=== PATIENT | female | born 1965 | race Caucasian/White ===

== ENCOUNTER → 2016-11-26 | Outpatient (CLI) | payer OTHER ==
--- NOTE | 2016-11-26 07:48 | MR ---
EXAMINATION TYPE: MR shoulder LT wo con DATE OF EXAM: 11/26/2016 7:33 AM COMPARISON: Chest x-ray June 09, 2016. HISTORY: Bilateral shoulder rotator cuff tear per order. Chronic shoulder pain for 3 to 4 years with difficulty raising overhead, no relief from pain or steroid injections. TECHNIQUE: Multiplanar, multisequence imaging of the left shoulder is performed without contrast. FINDINGS: Rotator Cuff: There is focal tear at articular surface measuring 2 mm in transverse dimension by 4 mm anterior posterior dimension (paracoronal image 13 and parasagittal image 5) appears to be involving the posterior fibers of the distal supraspinatus tendon. Infraspinatus tendon is intact. No full-thi ckness retracted tendon tear is identified. Rotator cuff muscle bulk is preserved. Subscapularis tend on is intact. Acromioclavicular Joint: There is joint space loss at acromioclavicular joint. Small spur from inferi or margin of the distal acromion (paracoronal image 16) and clavicle is present. Some loss inferior f at plane is present. Glenohumeral Joint: No significant joint effusion is seen. No significant spurring is noted. Labrum: The labrum appears grossly intact given limitation of non-arthrogram study. Biceps Tendon: The long head of biceps is in normal location within bicipital groove. Intra-articular portion is not well seen particularly near labral anchor. Bone marrow signal: There is subchondral cystic change in the anterior aspect of the humeral head. Other: No additional significant abnormality is appreciated. IMPRESSION: 1. Partial articular surface tear posterior fibers of supraspinatus tendon. No full-thickness rotator cuff tear is evident. 2. Type III acromion with possible underlying impingement, clinical correlation advised
--- NOTE | 2016-11-26 08:17 | MR ---
EXAMINATION TYPE: MR shoulder RT wo con DATE OF EXAM: 11/26/2016 7:46 AM COMPARISON: NONE HISTORY: Right shoulder pain TECHNIQUE: Multiplanar, multisequence imaging of the right shoulder is performed without contrast on a 3 [place] magnet. FINDINGS: There is no evidence of an os acromiale. There are moderate hypertrophic inflammatory changes in the right AC joint. There is pseudocystic ming nge in the humeral head, indirect sign of impingement. There is an incomplete full-thickness tear of the anterior fibers of the supraspinatus tendon measuri ng 3.7 mm in width and 4.7 mm in length.. There is an intrasubstance tear or posteriorly measuring 12 .7 mm in length and only 1.5 mm in width. The subscapularis tendon appears normal. The cartilaginous glenoid labrum appears intact. The biceps tendon is normally situated within the biceps tendon groove but I cannot follow its intra- articular course beyond the biceps yung. IMPRESSION: 1. INCOMPLETE FULL-THICKNESS TEAR WELL AN INTRASUBSTANCE TEAR OF THE SUPRASPINATUS TENDON. 2. HYPERTROPHIC CHANGES, RIGHT AC JOINT. 3. PSEUDOCYSTIC CHANGE IN THE HUMERAL HEAD, AN INDIRECT SIGN OF IMPINGEMENT. 4. I AM UNABLE TO FOLLOW THE BICEPS TENDON THROUGH ITS INTRA-ARTICULAR COURSE. PLEASE CORRELATE CLINI [facility] C TO ASSESS FOR BICEPS TENDON RUPTURE. THERE DOES NOT APPEAR TO BE ANY RETRACTION.
== END | disposition home or self-care (01) ==
LOC: RADMRIMAIN 06:43
PROVIDERS: ATTEND Orthopaedic Surgery
DX: M75.112 Incomplete rotator cuff tear or rupture of left shoulder, not specified as traumatic (principal); M75.111 Incomplete rotator cuff tear or rupture of right shoulder, not specified as traumatic

== ENCOUNTER 2016-11-30 15:48 | Emergency (ER) | payer OTHER ==
--- NOTE | 2016-11-30 16:15 | ED ---
Chest Pain HPI - General Chief Complaint: Chest Pain Stated Complaint: Chest Pain Time Seen by Provider: 11/30/16 16:05 Source: patient, RN notes reviewed Mode of arrival: ambulatory Limitations: no limitations - History of Present Illness Initial Comments: this is a 51-year-old female with a history of a pneumothorax about 3 years ago on the left side who states she had the onset around 2 PM today of sharp stabbing left-sided chest pain with some shortness of breath. She has no fevers chills nausea vomiting sweats she states it hurts to breathe somewhat. She wasn't sure whether she turned and caused the pain herself or whether she may have recurrence. No cough or phlegm production no other symptoms reported at this time MD Complaint: chest pain - Related Data Home Medications Medication Instructions Recorded Confirmed Omeprazole [PriLOSEC] 20 mg PO BID 12/30/15 11/30/16 oxyCODONE-APAP 10-325MG [Percocet 1 tab PO Q6HR PRN 12/30/15 11/30/16 10-325 mg] Cyclobenzaprine [Flexeril] 10 mg PO TID PRN 11/29/16 11/30/16 Previous Rx's Medication Instructions Recorded Hydrocodone/Acetaminophen [[place] 1 each PO Q6HR PRN #20 tab 11/30/16 5-325] Ibuprofen [Motrin] 800 mg PO Q6HR PRN #20 tab 11/30/16 Allergies Allergy/AdvReac Type Severity Reaction Status Date / Time Androgenic Anabolic Steroid AdvReac Dyspnea,rash,chest Verified 11/30/16 16:34 tightness Review of Systems ROS Statement: Those systems with pertinent positive or pertinent negative responses have been documented in the HPI. ROS Other: All systems not noted in ROS Statement are negative. EKG Findings - EKG Results: EKG: interpreted by ERMD, sinus rhythm (Sinus rhythm with a rate is 76 MN interval 138 QRS duration 94 QT/QTC of 356/400 incomplete right bundle-branch block poor R-wave progression no acute ST-T wave elevations or depressions.) Past Medical History Past Medical History: COPD, Eye Disorder, GERD/Reflux Additional Past Medical History / Comment(s): HERPES,collapsed lung,emphysema, IBS,hx pos h-pylori,glaucoma cj eyes,lt cataract History of Any Multi-Drug Resistant Organisms: None Reported Past Surgical History: Cholecystectomy, Hysterectomy Additional Past Surgical History / Comment(s): NECK FUSION C5-C6 , glaucoma proc cj eyes Additional Past Anesthesia/Blood Transfusion Reaction / Comment(s): b/p dropped low with prior pain injections to back,has had very bad gas pain with prior colonoscopy. Past Psychological History: Anxiety, Depression Smoking Status: Current every day smoker Past Alcohol Use History: None Reported Additional Past Alcohol Use History / Comment(s): started smoking at age 9,1ppd Past Drug Use History: None Reported - Past Family History Mother Family Medical History: Cancer Additional Family Medical History / Comment(s): lung Father History Unknown: Yes Family Medical History: Congestive Heart Failure (CHF) Sister(s) Additional Family Medical History / Comment(s): stomach problems Brother(s) Additional Family Medical History / Comment(s): lung problems General Exam - General Exam Comments Initial Comments: This is a well-developed well-nourished awake alert oriented 3 female Limitations: no limitations General appearance: alert, anxious, in distress Head exam: Present: atraumatic, normocephalic, normal inspection Eye exam: Present: normal appearance, PERRL, EOMI. Absent: scleral icterus, conjunctival injection, periorbital swelling ENT exam: Present: normal exam, mucous membranes moist Neck exam: Present: normal inspection. Absent: tenderness, meningismus, lymphadenopathy Respiratory exam: Present: decreased breath sounds (Decreased breath sounds the left compared to the right). Absent: respiratory distress, wheezes, rales, rhonchi, stridor Cardiovascular Exam: Present: regular rate, normal rhythm, normal heart sounds. Absent: systolic murmur, diastolic murmur, rubs, gallop, clicks GI/Abdominal exam: Present: soft, normal bowel sounds. Absent: distended, tenderness, guarding, rebound, rigid Extremities exam: Present: normal inspection, full ROM, normal capillary refill. Absent: tenderness, pedal edema, joint swelling, calf tenderness Back exam: Present: normal inspection Neurological exam: Present: alert, oriented X3, CN II-XII intact Psychiatric exam: Present: normal affect, normal mood Skin exam: Present: warm, dry, intact, normal color. Absent: rash Course Vital Signs 11/30/16 11/30/16 15:56 16:53 Temperature 98.2 F Pulse Rate 94 76 Respiratory 18 16 Rate Blood Pressure 120/73 132/84 O2 Sat by Pulse 99 98 Oximetry - Reevaluation(s) Reevaluation #1: 11/30/16 17:13 Patient is feeling somewhat better after the medication. Chest Pain MDM - MDM X-ray does show evidence of perhaps a 10% pneumothorax on the left. Also is a blood noted. I did discuss this with the radiologist. The patient would like to go home. I did discuss the findings of her and her . Patient will come back if is any problems. At this time with attempts a pneumothorax there is no physical intervention other than caution with respect to smoking we did discuss smoking cessation and the floor for about 3.2 minutes. She will follow- up with her doctor and return when necessary the patient was offered admission but would prefer not to be admitted. She will come back if is any problems. Disposition Clinical Impression: Pneumothorax, left, Chest pain Disposition: HOME SELF-CARE Condition: Good Instructions: Chest Pain (ED), Spontaneous Pneumothorax (ED) Prescriptions: Hydrocodone/Acetaminophen [[place] 5-325] 1 each PO Q6HR PRN #20 tab PRN Reason: Pain Ibuprofen [Motrin] 800 mg PO Q6HR PRN #20 tab PRN Reason: Pain
[2016-11-30] MEDS ORDERED: KETOROLAC 30 MG/ML 1 ML VIAL IVP STA (16:25)
[2016-11-30 16:29] LABS: Basophils # (A) 0.1 k/uL (0-0.2); Basophils % (A) 1 %; CH 35.1; CHCM 34.5; Eosinophils # (A) 0.1 k/uL (0-0.7); Eosinophils % (A) 1 %; HCT 47.3 % (34.0-46.0); HDW 2.32; HGB 15.9 gm/dL (11.4-16.0); Luc # (Auto) 0.23; Luc % (Auto) 2; Lymphocytes # (A) 2.9 k/uL (1.0-4.8); Lymphocytes % (A) 25 %; MCH 34.4 pg (25.0-35.0); MCHC 33.6 g/dL (31.0-37.0); MCV 102.2 fL (80.0-100.0); Macrocytosis Slight; Monocytes # (A) 0.6 k/uL (0-1.0); Monocytes % (A) 5 %; Neutrophils # (A) 7.8 k/uL (1.3-7.7); Neutrophils % (A) 67 %; RBC 4.63 m/uL (3.80-5.40); RDW 12.9 % (11.5-15.5); WBC 11.7 k/uL (3.8-10.6); WBC (Perox) 11.24
--- NOTE | 2016-11-30 16:37 | XR ---
EXAMINATION TYPE: XR chest 1V portable DATE OF EXAM: 11/30/2016 4:30 PM Comparison: 10/29/2015 Clinical History: 51-year-old female with chest pain Findings: Heart is normal size. Aorta and pulmonary vasculature within normal limits. Strandy atelectasis or sc arring at the lower lungs with mild interstitial prominence and bullous emphysema in the right greate r than left upper lungs. There appears to be a pleural edge at the left apex. Underlying pneumothorax estimated at 10% by volume. Impression: COPD with bullous emphysema. Suspect a left apical pneumothorax, 10% by volume. Findings called to Dr Vandana Zheng in the ER at approximately 4:34 PM.
[2016-11-30 16:40] LABS: ALT 23 U/L (9-52); AST 20 U/L (14-36); Alkaline Phosphatase 97 U/L (38-126); Anion Gap 9 mmol/L; Blood Urea Nitrogen 11 mg/dL (7-17); Calcium 9.8 mg/dL (8.4-10.2); Carbon Dioxide 30 mmol/L (22-30); Chloride 101 mmol/L (98-107); Glucose 78 mg/dL (74-99); Magnesium 2.2 mg/dL (1.6-2.3); Non-African American GFR(MDRD) >60 (>60 ml/min/1.73 sqM); Sodium 140 mmol/L (137-145); Total Bilirubin 0.9 mg/dL (0.2-1.3); Total Protein 7.3 g/dL (6.3-8.2)
[2016-11-30 16:49] LABS: Prothrombin Time 10.3 sec (9.0-12.0)
[2016-11-30 16:50] LABS: Creatine Kinase <20 U/L (30-135)
[2016-11-30 16:51] LABS: Partial Thromboplastin Time 19.2 sec (22.0-30.0)
[2016-11-30 17:03] LABS: Creatine Kinase MB 0.2 ng/mL (0.0-2.4); Troponin I <0.012 ng/mL (0.000-0.034)
[2016-11-30 17:30] VITALS: BP 116/80; PULSE 80; RESP 18; TEMP 98.4
== END 2016-11-30 17:30 | disposition home or self-care (01) ==
LOC: EC 15:48
DX: J93.83 Other pneumothorax (principal); J44.9 Chronic obstructive pulmonary disease, unspecified; K21.9 Gastro-esophageal reflux disease without esophagitis; K58.9 Irritable bowel syndrome, unspecified; F17.200 Nicotine dependence, unspecified, uncomplicated; Z79.899 Other long term (current) drug therapy; Z88.8 Allergy status to other drugs, medicaments and biological substances; Z82.49 Family history of ischemic heart disease and other diseases of the circulatory system
CPT/HCPCS: 36415; 93005; 85379; 83880; 80053; 82550; 82553; 83735; 84484; 85025; 85610; 85730; 71010; 99285; 96374; J1885

== ENCOUNTER → 2016-12-03 | Outpatient (CLI) | payer OTHER ==
--- NOTE | 2016-12-03 12:15 | CT ---
EXAMINATION TYPE: CT angio chest DATE OF EXAM: 12/03/2016 11:58 AM COMPARISON: 07/21/2012 and radiographs 11/30/2016. HISTORY: 51 year-old female with left sided chest pain, SOB TECHNIQUE: Contiguous axial scanning of the chest performed with IV Contrast, patient injected with 1 00 ml mL of Omnipaque 350. Coronal/sagittal MIP reconstructions performed. CT DLP: 313 mGycm Automated exposure control for dose reduction was used. FINDINGS: Heart is upper limits of normal in size without pericardial effusion. Aorta is normal caliber with co nventional arch vessel branching anatomy. No thoracic lymphadenopathy by CT size criteria. Satisfactory opacification of the pulmonary arterial system though with mild respiratory motion. Ther e is no evidence for pulmonary embolus. There is advanced emphysema with severe bullous change in the right upper lobe and a small left apica l and anterior upper lung pneumothorax. Pneumothorax also extends at the lung base. Refer to coronal images 42, 52, and sagittal image 85. Trace left pleural effusion is present. There is some patchy atelectasis at the inferior lingula and basilar left lower lobe. Visualized upper abdomen shows a 3 mm nonobstructive left upper pole renal calculus and mild reflux o f contrast into the hepatic veins. Bones: No osseous destructive process. IMPRESSION: 1. NO PULMONARY EMBOLUS. 2. KNOWN SMALL LEFT PNEUMOTHORAX DESCRIBED ON CHEST RADIOGRAPH 11/30/2016. PNEUMOTHORAX INVOLVES TH E APEX, ANTERIOR ASPECT, AND THE LUNG BASE ESTIMATED AT 15-20%. 3. TRACE LEFT PLEURAL EFFUSION WITH SOME PATCHY ATELECTASIS AT THE INFERIOR LINGULA AND POSTERIOR LEF T BASE. 4. COPD WITH ADVANCED BULLOUS EMPHYSEMA. 5. INCIDENTAL 3 MM NONOBSTRUCTIVE LEFT RENAL CALCULUS.
== END ==
LOC: RADCTMAIN 11:24
PROVIDERS: ATTEND Internal Medicine
DX: J93.9 Pneumothorax, unspecified (principal); J90 Pleural effusion, not elsewhere classified; J98.11 Atelectasis; J44.9 Chronic obstructive pulmonary disease, unspecified
CPT/HCPCS: 71275; Q9967

== ENCOUNTER → 2017-03-24 | Outpatient (CLI) | payer OTHER ==
--- NOTE | 2017-03-24 17:01 | XR ---
Lumbar spine with flexion and extension HISTORY: Low back pain 7 images of the lumbar spine Correlation with prior spine 08/28/2015 Lumbar vertebral bodies show stable height, alignment, and bone mineralization. No significant listhe sis on flexion and extension views. Loss of disc height present at L5-S1. Sclerosis present in the po sterior elements of the lower lumbar spine. IMPRESSION: Osteopenia, degenerative disc disease, facet arthropathy. Essentially stable exam.
--- NOTE | 2017-03-24 17:04 | XR ---
Cervical spine HISTORY: Neck pain, cervical fusion 7 views of the cervical spine correlated to previous exam cervical spine dated 06/17/2016 Disc replacement at C5-6 is again noted, prosthesis is stable in appearance, cervical vertebral schuyler s show stable height, alignment, and bone mineralization. Alignment is stable on flexion and extensio n views, minimal anterolisthesis of C4 on C5, C5 on C6, C3-4 and flexion views is likely physiologic and stable. Prevertebral soft tissues are unremarkable. No significant foraminal encroachment. IMPRESSION: Stable postoperative findings.
--- NOTE | 2017-03-24 17:06 | XR ---
Thoracic spine HISTORY: Pain 3 views of the thoracic spine Exam correlated to prior spine dated 08/28/2015 Thoracic vertebral bodies show stable height, alignment, and bone mineralization. Disc spaces are daphne ntained IMPRESSION: Stable exam, no acute abnormality. Mild degenerative disc changes are again noted.
== END | disposition home or self-care (01) ==
LOC: RADXRMAIN 15:53
PROVIDERS: ATTEND Specialist
DX: M85.80 Other specified disorders of bone density and structure, unspecified site (principal); M51.37 Other intervertebral disc degeneration, lumbosacral region; M12.88 Other specific arthropathies, not elsewhere classified, other specified site; M51.34 Other intervertebral disc degeneration, thoracic region; Z98.890 Other specified postprocedural states
CPT/HCPCS: 72052; 72070; 72114

== ENCOUNTER → 2017-04-20 | Outpatient (CLI) | payer OTHER ==
--- NOTE | 2017-04-20 14:34 | XR ---
EXAMINATION TYPE: XR knee complete RT DATE OF EXAM: 04/20/2017 COMPARISON: NONE HISTORY: Pain TECHNIQUE: Four views are submitted. FINDINGS: Mild narrowing medial compartment knee joint. Calcification along the fibula noted. Osseous structure s are intact. No acute fracture seen. Diffuse osteopenia noted. IMPRESSION: 1. No acute fracture or dislocation.
== END | disposition home or self-care (01) ==
LOC: RADXRMAIN 14:07
PROVIDERS: ATTEND Family Medicine
DX: S80.01XA Contusion of right knee, initial encounter (principal)

== ENCOUNTER → 2017-10-20 | Outpatient (CLI) | payer OTHER ==
--- NOTE | 2017-10-20 14:54 | CT ---
EXAMINATION TYPE: CT cervical spine wo con DATE OF EXAM: 10/20/2017 COMPARISON: X-ray dated 03/24/2017 HISTORY: Neck pain, bilateral hand and shoulder pain. CT DLP: 340.4 mGycm Automated exposure control for dose reduction was used. TECHNIQUE: CT scan of the cervical spine is obtained without contrast, axial images are obtained, sa gittal and coronal reformatted images are also reviewed. FINDINGS: Exam is limited by noncontrast technique. Assessment spinal canal and spinal cord limited. Alignment appears anatomic. No significant anterolisthesis C2-C3 there is no disc herniation or canal stenosis. No foraminal encroachment. At C3-C4 no disc herniation or canal stenosis. No foraminal encroachment. At C4-C5 there is mild disc space narrowing. Neural foramina are widely patent. No evidence of disc h erniation or canal stenosis. Mild facet arthropathy on the left. At C5-C6 there severe artifact from the postsurgical change which results in nondiagnostic assessment spinal canal. C6-C7 no disc herniation or canal stenosis. No foraminal encroachment. At C7-T1 no disc herniation or canal stenosis. No foraminal encroachment. Emphysematous changes involving the lung apices are noted with a large bulla in the right upper lobe. Thyroid gland has a normal appearance. No obvious pathologic adenopathy. IMPRESSION: 1. Postsurgical change C5-C6. No obvious disc herniation or canal stenosis. Correlate with MRI as cli nically warranted
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
--- NOTE | 2017-10-20 16:03 | MR ---
PRE AND POSTCONTRAST ENHANCED MRI OF THE BRAIN: CLINICAL HISTORY: AMS, memory loss, headaches; CONTRAST: Gadavist 5 cc Multiplanar and multispin-echo imaging of the brain was performed both before and after the administr ation of contrast. The ventricles, basal cisterns and sulci overlying the cerebral convexities are within normal limits. There is no evidence for midline shift or mass effect. Acute intracranial hemorrhage or extra-axial collection is not evident. Minimal periventricular white matter ischemic demyelination. Brain parenchyma is otherwise homogeneou s. Following contrast administration, there is no evidence for pathologic enhancement or enhancing mass. The paranasal sinuses and mastoid air cells are well-aerated. IMPRESSION: Minimal periventricular white matter ischemic demyelination. Examination is otherwise within normal l imits for the patient's age group.
== END | disposition home or self-care (01) ==
LOC: RADCTMAIN 14:21
PROVIDERS: ATTEND Psychiatry & Neurology Neurology
DX: M48.07 Spinal stenosis, lumbosacral region (principal); M99.73 Connective tissue and disc stenosis of intervertebral foramina of lumbar region; M51.27 Other intervertebral disc displacement, lumbosacral region; M47.817 Spondylosis without myelopathy or radiculopathy, lumbosacral region; R41.82 Altered mental status, unspecified; M54.2 Cervicalgia; Z98.890 Other specified postprocedural states; Z91.09 Other allergy status, other than to drugs and biological substances
CPT/HCPCS: 72125; 70553; 72148; A9581

== ENCOUNTER → 2017-10-24 | Outpatient (CLI) | payer OTHER ==
[2017-10-24 14:05] LABS: HCT 40.9 % (34.0-46.0); HGB 14.1 gm/dL (11.4-16.0); MCH 33.6 pg (25.0-35.0); MCHC 34.4 g/dL (31.0-37.0); MCV 97.6 fL (80.0-100.0); Mean Platelet Volume 6.7; Platelet Count 282 k/uL (150-450); RBC 4.19 m/uL (3.80-5.40); RDW 11.8 % (11.5-15.5); WBC 8.1 k/uL (3.8-10.6)
[2017-10-24 14:08] LABS: Appearance,Urine Clear (Clear); Bilirubin,Urine Negative (Negative); Blood,Urine Negative (Negative); Color,Urine Yellow; Glucose,Urine (UA) Negative (Negative); Ketones,Urine Negative (Negative); Leukocyte Esterase,Urine Negative (Negative); Nitrite,Urine Negative (Negative); PH, Urine 5.5 (5.0-8.0); Protein,Urine Trace (Negative)
[2017-10-24 14:22] LABS: ALT 30 U/L (9-52); AST 23 U/L (14-36); Albumin 4.3 g/dL (3.5-5.0); Anion Gap 9 mmol/L; Blood Urea Nitrogen 11 mg/dL (7-17); C Reactive Protein <5.0 mg/L (<10.0); Calcium 10.1 mg/dL (8.4-10.2); Carbon Dioxide 25 mmol/L (22-30); Chloride 107 mmol/L (98-107); Creatine Kinase 68 U/L (30-135); Glucose 90 mg/dL (74-99); Magnesium 1.9 mg/dL (1.6-2.3); Potassium 4.3 mmol/L (3.5-5.1); Sodium 141 mmol/L (137-145); Total Bilirubin 0.8 mg/dL (0.2-1.3); Total Protein 6.9 g/dL (6.3-8.2)
[2017-10-24 14:25] LABS: Alkaline Phosphatase 102 U/L (38-126)
[2017-10-24 14:56] LABS: Erythrocyte Sedimentation Rate 5 mm/hr (0-20)
[2017-10-24 20:08] LABS: Hemoglobin A1C 5.2 % (4.0-6.0)
[2017-10-25 13:48] LABS: Vitamin B6 7 ug/L (5-50)
[2017-10-25 15:02] LABS: Vitamin E (Alpha Tocopherol) 928 ug/dL (500-1800)
[2017-10-25 15:03] LABS: Vitamin A 40 ug/dL (38-106)
[2017-10-26 07:01] LABS: Vitamin B1 53 ug/L (38-122)
[2017-10-28 12:14] LABS: Nicotinuric Acid None Detected
[2017-10-30 01:38] LABS: Vitamin K 186 pg/mL (80-1160)
== END | disposition home or self-care (01) ==
LOC: LABWHC1 13:29
PROVIDERS: ATTEND Psychiatry & Neurology Pain Medicine
DX: M79.7 Fibromyalgia (principal)
CPT/HCPCS: 36415; 80053; 81003; 82306; 82550; 83036; 83519; 83735; 84207; 84425; 84446; 84590; 84591; 84597; 85027; 85652; 86140

== ENCOUNTER → 2017-12-09 | Outpatient (CLI) | payer OTHER ==
[2017-12-09 14:05] LABS: Basophils % (A) 0 %; Eosinophils # (A) 0.1 k/uL (0-0.7); Eosinophils % (A) 1 %; HCT 46.2 % (34.0-46.0); HGB 15.3 gm/dL (11.4-16.0); Lymphocytes # (A) 1.7 k/uL (1.0-4.8); Lymphocytes % (A) 17 %; MCH 32.2 pg (25.0-35.0); MCHC 33.1 g/dL (31.0-37.0); MCV 97.2 fL (80.0-100.0); Mean Platelet Volume 6.8; Monocytes # (A) 0.5 k/uL (0-1.0); Monocytes % (A) 5 %; Neutrophils # (A) 7.5 k/uL (1.3-7.7); Neutrophils % (A) 76 %; Platelet Count 371 k/uL (150-450); RBC 4.75 m/uL (3.80-5.40); RDW 12.7 % (11.5-15.5); WBC 9.9 k/uL (3.8-10.6)
[2017-12-09 14:20] LABS: Anion Gap 10 mmol/L; Blood Urea Nitrogen 16 mg/dL (7-17); Calcium 9.6 mg/dL (8.4-10.2); Carbon Dioxide 28 mmol/L (22-30); Chloride 103 mmol/L (98-107); Glucose 72 mg/dL (74-99); Sodium 141 mmol/L (137-145)
== END | disposition home or self-care (01) ==
LOC: LABWHC1 13:08
PROVIDERS: ATTEND Family Medicine
DX: Z01.818 Encounter for other preprocedural examination (principal); I51.7 Cardiomegaly; R94.31 Abnormal electrocardiogram [ECG] [EKG]; Z01.812 Encounter for preprocedural laboratory examination
CPT/HCPCS: 36415; 80048; 85025; 93005

== ENCOUNTER → 2017-12-21 | Outpatient (CLI) | payer OTHER ==
[2017-12-21 12:24] LABS: Basophils % (A) 0 %; Eosinophils # (A) 0.1 k/uL (0-0.7); Eosinophils % (A) 1 %; HCT 47.3 % (34.0-46.0); HGB 15.6 gm/dL (11.4-16.0); Lymphocytes # (A) 2.2 k/uL (1.0-4.8); Lymphocytes % (A) 27 %; MCH 32.3 pg (25.0-35.0); MCHC 33.1 g/dL (31.0-37.0); MCV 97.7 fL (80.0-100.0); Mean Platelet Volume 6.5; Monocytes # (A) 0.4 k/uL (0-1.0); Monocytes % (A) 5 %; Neutrophils # (A) 5.3 k/uL (1.3-7.7); Neutrophils % (A) 64 %; Platelet Count 270 k/uL (150-450); RBC 4.84 m/uL (3.80-5.40); RDW 12.9 % (11.5-15.5); WBC 8.2 k/uL (3.8-10.6)
[2017-12-21 12:34] LABS: Anion Gap 7 mmol/L; Blood Urea Nitrogen 12 mg/dL (7-17); Calcium 9.7 mg/dL (8.4-10.2); Carbon Dioxide 30 mmol/L (22-30); Chloride 103 mmol/L (98-107); Glucose 91 mg/dL (74-99); Potassium 4.3 mmol/L (3.5-5.1); Sodium 140 mmol/L (137-145)
== END | disposition home or self-care (01) ==
LOC: LABWHC1 11:49
PROVIDERS: ATTEND Family Medicine
DX: M25.511 Pain in right shoulder (principal); Z63.4 Disappearance and death of family member
CPT/HCPCS: 36415; 80048; 85025

== ENCOUNTER → 2018-07-06 | Outpatient (CLI) | payer OTHER ==
--- NOTE | 2018-07-06 16:22 | MR ---
EXAMINATION TYPE: MR cervical spine wo/w con DATE OF EXAM: 07/06/2018 COMPARISON: Plain film 03/24/2017, CT cervical spine 10/20/2017 HISTORY: Neck pain previous surgery, gadavist5.0 TECHNIQUE: Multiplanar, multisequence images of the cervical spine were acquired utilizing 5.0 mL intravenous Ga davist gadolinium contrast. Diffusion weighted imaging was performed. C2-C3: No evidence for degenerative disc disease. No disc bulge/herniation or protrusion. No Canal stenosis. Foramina are patent bilaterally. C3-C4: No evidence for degenerative disc disease. No disc bulge/herniation or protrusion. No Canal stenosis. Foramina are patent bilaterally. C4-C5: No evidence for degenerative disc disease. No disc bulge/herniation or protrusion. No Canal stenosis. Foramina are patent bilaterally. C5-C6: Limited. C6-C7: No evidence for degenerative disc disease. No disc bulge/herniation or protrusion. No Canal stenosis. Foramina are patent bilaterally. C7-T1: No evidence for degenerative disc disease. No disc bulge/herniation or protrusion. No Canal stenosis. Foramina are patent bilaterally. Cervical segments are intact. There is normal alignment. Cervical spinal cord is of normal signal. Craniovertebral junction relationships are within normal limits. Patient is status post disc replac ement at C5-6, there is susceptibility artifact which may limit sensitivity. No abnormal enhancement following contrast administration. IMPRESSION: Postoperative changes, there are limitations due to the metallic artifact.
== END | disposition home or self-care (01) ==
LOC: RADMRIMAIN 15:00
PROVIDERS: ATTEND Psychiatry & Neurology Neurology
DX: M54.2 Cervicalgia (principal); Z98.890 Other specified postprocedural states
CPT/HCPCS: 72156; A9581

== ENCOUNTER → 2018-10-13 | Outpatient (CLI) | payer OTHER ==
--- NOTE | 2018-10-13 12:05 | XR ---
EXAMINATION TYPE: XR chest 2V DATE OF EXAM: 10/13/2018 COMPARISON: 12/03/2016 TECHNIQUE: PA and lateral views submitted. HISTORY: Shortness of breath chest pain FINDINGS: The lungs are clear and there is no pneumothorax, pleural effusion, or focal pneumonia. Large bulla involving the right upper lobe noted and appear stable from the prior exam. Postsurgical change righ t shoulder. Left apical pleural thickening. No overt failure. IMPRESSION: 1. COPD with stable appearing large bulla right upper lobe.
== END | disposition home or self-care (01) ==
LOC: RADXRMAIN 10:59
PROVIDERS: ATTEND Family Medicine
DX: J43.9 Emphysema, unspecified (principal)
CPT/HCPCS: 71046

== ENCOUNTER → 2018-10-13 | Outpatient (CLI) | payer OTHER ==
--- NOTE | 2018-10-13 16:24 | CT ---
EXAMINATION TYPE: CT abdomen wo con DATE OF EXAM: 10/13/2018 COMPARISON: None INDICATION: Upper abdominal pain DLP: 130.4 mGycm, Automated exposure control for dose reduction was used. CONTRAST: 0 mL of Isovue 300. Study performed without Oral Contrast TECHNIQUE: Axial images were obtained from above the diaphragm to the pubic rami in the axial plane a t 5 mm thick sections. Reconstructed images are reviewed on the computer in the coronal plane. FINDINGS: Limited CT sections are obtained the lung bases. The lung bases are clear. Some minimal paraseptal emphysematous change may be within the dependent portions of the bases. CT ABDOMEN: Liver: Normal Spleen: Normal Pancreas: Normal Adrenal glands: The adrenal glands are normal. Gallbladder: Surgically absent Kidneys: No masses are evident. No hydronephrosis is present. No cysts are present. There is a 0.1 cm cyst right kidney. There is a 0.3 cm. A. 3 small calcifications estimated 0.2 cm. These described calcifications appear nonobstructive. No hydronephrosis is evident. No Hydroureter is evident. Aorta: Vascular calcification is within the aorta. Inferior vena cava: Normal. IMPRESSIONS: 1. Nonobstructing bilateral punctate renal stones. 2. No suspicious abnormality to account for short pain lower thoracic region
== END | disposition home or self-care (01) ==
LOC: RADCTMAIN 11:14
PROVIDERS: ATTEND Nurse Practitioner Family
DX: N20.0 Calculus of kidney (principal); Z88.1 Allergy status to other antibiotic agents
CPT/HCPCS: 74150

== ENCOUNTER → 2018-10-24 | Outpatient (CLI) | payer OTHER ==
--- NOTE | 2018-10-24 16:48 | CT ---
EXAMINATION TYPE: CT chest w con DATE OF EXAM: 10/24/2018 COMPARISON: Chest radiograph dated 10/13/[address] [employer] chest dated 12/03/2016. HISTORY: abnormal cxr CT DLP: 113.6 mGycm. Automated Exposure Control for Dose Reduction was Utilized. TECHNIQUE: CT scan of the thorax is performed following with IV Contrast, patient injected with 100 mL of Isovue 300. FINDINGS: LUNGS: There is a very large right apical bulla measuring 8.4 x 6.4 cm. Few lung markings remain and there is no mediastinal shift noted. There is advanced bullous emphysematous changes throughout, righ t greater than left. Minimal dependent atelectasis is seen. No suspicious pulmonary mass, consolidati on or pleural effusion is noted. MEDIASTINUM: There are no greater than 1 cm hilar or mediastinal lymph nodes. Ascending thoracic aort a and aortic root are within normal limits of size measuring 2.7 cm and 3.3 cm respectively. Mild cor onary calcifications are evident. No pericardial effusion is seen. OTHER: Gallbladder surgically absent. Mild multilevel degenerative changes of the thoracic spine are present. IMPRESSION: Extensive bullous emphysematous change with large right apical bulla measuring 8.4 cm. Th is is similar in degree to the prior of 2016. No new suspicious pulmonary masses.
== END | disposition home or self-care (01) ==
LOC: RADCTMAIN 14:46
PROVIDERS: ATTEND Nurse Practitioner Family
DX: J43.9 Emphysema, unspecified (principal); Z88.1 Allergy status to other antibiotic agents
CPT/HCPCS: 71260; Q9967

== ENCOUNTER → 2018-12-07 | Outpatient (CLI) | payer OTHER | END | disposition home or self-care (01) | LOC: LABWHC1 14:26 | PROVIDERS: ATTEND Psychiatry & Neurology Pain Medicine | DX: R51 Headache (principal) | CPT/HCPCS: 36415; 82306; 83735 ==

== ENCOUNTER 2019-04-09 14:02 | Emergency (ER) | payer OTHER ==
[2019-04-09 14:34] VITALS: RESP 18
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
[2019-04-09 16:24] VITALS: BP 110/62; PULSE 69; TEMP 97.2
== END 2019-04-09 16:23 | disposition home or self-care (01) ==
LOC: EC 14:02
DX: M54.5 Low back pain (principal); M53.3 Sacrococcygeal disorders, not elsewhere classified; M19.90 Unspecified osteoarthritis, unspecified site; K21.9 Gastro-esophageal reflux disease without esophagitis; F17.200 Nicotine dependence, unspecified, uncomplicated; Z88.8 Allergy status to other drugs, medicaments and biological substances; Z79.899 Other long term (current) drug therapy; Z96.698 Presence of other orthopedic joint implants; V49.49XA Driver injured in collision with other motor vehicles in traffic accident, initial encounter; Y93.89 Activity, other specified; Y92.410 Unspecified street and highway as the place of occurrence of the external cause
CPT/HCPCS: 70450; 72125; 99284

== ENCOUNTER → 2019-05-07 | Outpatient (CLI) | payer OTHER ==
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
== END | disposition home or self-care (01) ==
LOC: RADCTMAIN 13:35
PROVIDERS: ATTEND Family Medicine
DX: M48.061 Spinal stenosis, lumbar region without neurogenic claudication (principal); M43.16 Spondylolisthesis, lumbar region
CPT/HCPCS: 72128; 72131

== ENCOUNTER → 2019-05-31 | Outpatient (CLI) | payer OTHER ==
--- NOTE | 2019-05-31 14:50 | MM ---
Reason for exam: clinical finding. Last mammogram was performed 7 years and 6 months ago. History: Patient is postmenopausal. Family history of breast cancer in grandmother. Took hormonal contraceptives for 8 years beginning at age 14. Indicated problem(s): pain in the left breast. Physical Findings: Nurse Summary: 0.5cm nodule in the left breast (nurse ms). MG Diagnostic Mammo w CAD JENN Bilateral CC and MLO view(s) were taken. Prior study comparison: December 06, 2011, CAD bilateral diagnostic mammogram. November 21, 2009, bilateral digital screening mammogram. The breast tissue is heterogeneously dense. This may lower the sensitivity of mammography. Finding: There are segmental fine calcifications in the right breast. No significant changes in finding since December 06, 2011 and November 21, 2009. These results were verbally communicated with the patient and result sheet given to the patient on 05/31/19. ASSESSMENT: Benign, BI-RAD 2 RECOMMENDATION: Routine screening mammogram of both breasts in 1 year. Manage on a clinical basis with regard to palpable abnormality.
--- NOTE | 2019-05-31 14:52 | USB ---
Reason for exam: clinical finding. History: Patient is postmenopausal. Family history of breast cancer in grandmother. Took hormonal contraceptives for 8 years beginning at age 14. US Breast BILAT Right complete breast ultrasound includes all four quadrants, the retroareolar region and axilla. Finding demonstrates no cystic or solid lesion seen. Left complete breast ultrasound includes all four quadrants, the retroareolar region and axilla. Finding demonstrates a 0.2 x 0.2 x 0.2cm lesion too small to characterize at 12 o'clock and a 0.3 x 0.3 x 0.3cm lesion too small to characterize at 7 o'clock. These results were verbally communicated with the patient and result sheet given to the patient on 05/31/19. ASSESSMENT: Probably benign, BI-RAD 3 RECOMMENDATION: Ultrasound of the left breast in 6 months. Manage on a clinical basis with regard to left palpable abnormality.
--- NOTE | 2019-06-01 17:39 | BD ---
EXAMINATION TYPE: Axial Bone Density DATE OF EXAM: 05/31/2019 COMPARISON: NONE CLINICAL HISTORY: Height: 5 FT 3 1/2 IN Weight: 114 FRAX RISK QUESTIONS: History of Fracture in Adulthood: YES Secondary Osteoporosis: 3. Menopause before 45: YES Current Tobacco Use: YES RISK FACTORS HISTORY OF: Surgery to Spine/Hip(right/left)/Wrist (right/left): C SPINE When: 2014 Active: YES Postmenopausal woman: PART HYST AGE 40 Poor Health: FAIR MEDICATIONS: Additional Medications: PERCOCET, RENIDINE, VIT D , Additional History: EXAM MEASUREMENTS: Bone mineral densitometry was performed using the [employer] System. Bone mineral density as measured about the Lumbar spine is: ----- L1-L4(G/cm2): 0.712 T Score Values are as follows: ----- L2: -4.9 ----- L3: -3.5 ----- L4: -3.5 ----- L1-L4: -3.9 BASELINE Bone mineral density about the R hip (g/cm2): 0.612 Bone mineral density about the L hip (g/cm2): 0.583 T Score values are as follows: -----R Neck: -3.1 -----L Neck: -3.3 -----R Total: -3.4 -----L Total: -3.4 BASELINE IMPRESSION: Osteoporosis (T Score less than -2.5). There is increased fracture risk and therapy is usually indicated based on age. Re-Screen 1-2 years. NOTE: T-SCORE=SD OF THE YOUNG ADULT MEAN.
== END | disposition home or self-care (01) ==
LOC: RADMAMWWP 13:34
PROVIDERS: ATTEND Family Medicine
DX: N64.4 Mastodynia (principal); N63.20 Unspecified lump in the left breast, unspecified quadrant; M81.0 Age-related osteoporosis without current pathological fracture
CPT/HCPCS: 77066; 77080

== ENCOUNTER → 2019-06-19 | Outpatient (CLI) | payer OTHER ==
--- NOTE | 2019-06-19 12:33 | CT ---
EXAMINATION TYPE: CT chest w con DATE OF EXAM: 06/19/2019 COMPARISON: CT chest October 24, [address] thoracic spine May 07, 2019 HISTORY: Abn CT of spine, pulmonary nodule CT DLP: 267 mGycm. Automated Exposure Control for Dose Reduction was Utilized. TECHNIQUE: CT scan of the thorax is performed following with IV Contrast, patient injected with 100 mL of Isovue 300. FINDINGS: LUNGS: Background of advanced emphysematous change redemonstrated with large right apical bulla again seen. Bibasilar dependent atelectasis with some areas of linear atelectasis and/or scarring bilatera l lower lobes again seen is prominent near diaphragm. No definitive endobronchial lesion seen on curr ent study with particular attention to right lower lobe segmental bronchus. Perhaps mucous plug which has cleared in the interval. Tracheobronchial tree patent on current study. MEDIASTINUM: There are no greater than 1 cm hilar or mediastinal lymph nodes. No cardiomegaly or pe ricardial effusion is seen. Coronary artery calcification redemonstrated which is noted marked under lying coronary artery disease. OTHER: No additional significant abnormality is seen. IMPRESSION: Advanced emphysematous change without suspicious new nodule or adenopathy. No enlarging e ndobronchial lesion identified.
== END | disposition home or self-care (01) ==
LOC: RADCTMAIN 10:57
PROVIDERS: ATTEND Family Medicine
DX: J43.9 Emphysema, unspecified (principal)
CPT/HCPCS: 71260; Q9967

== ENCOUNTER → 2019-12-04 | Outpatient (CLI) | payer MEDICARE, OTHER ==
--- NOTE | 2019-12-05 07:13 | USB ---
Reason for exam: follow-up at short interval from prior study. History: Patient is postmenopausal. Family history of breast cancer in maternal grandmother. Took hormonal contraceptives for 8 years beginning at age 14. Physical Findings: Nurse Summary: 1cm movable lump left breast 2 o'clock (nurse TM). US Breast LT Left complete breast ultrasound includes all four quadrants, the retroareolar region and axilla. Finding demonstrates a 3 x 2 x 2mm oval, cystic lesion at 6 o'clock, a 2 x 2 x 2mm oval, cystic lesion at 9 o'clock and a 8mm oval lymph node at the axilla. These results were verbally communicated with the patient and result sheet given to the patient on 12/04/19. ASSESSMENT: Probably benign, BI-RAD 3 RECOMMENDATION: Follow-up diagnostic mammogram of both breasts in 6 months. Back on schedule. Ultrasound of the left breast in 6 months.
== END | disposition home or self-care (01) ==
LOC: RADUSWWP 14:42
PROVIDERS: ATTEND Family Medicine
DX: R92.8 Other abnormal and inconclusive findings on diagnostic imaging of breast (principal)

== ENCOUNTER → 2020-02-08 | Outpatient (CLI) | payer MEDICARE, OTHER ==
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
== END | disposition home or self-care (01) ==
LOC: RADXRMAIN 11:29
PROVIDERS: ATTEND Family Medicine
DX: M50.322 Other cervical disc degeneration at C5-C6 level (principal); M48.02 Spinal stenosis, cervical region; Z98.890 Other specified postprocedural states
CPT/HCPCS: 72050

== ENCOUNTER → 2020-03-26 | Outpatient (CLI) | payer MEDICARE, OTHER ==
--- NOTE | 2020-03-26 18:12 | US ---
EXAMINATION TYPE: US carotid duplex BILAT DATE OF EXAM: 03/26/2020 COMPARISON: NONE CLINICAL HISTORY: R42 DIZZINESS. dizziness, no HTN EXAM MEASUREMENTS: RIGHT: Peak Systolic Velocity (PSV) cm/sec ----- Right CCA: 75.4 ----- Right ICA: 99.2 ----- Right ECA: 112.0 ICA/CCA ratio: 1.3 RIGHT: End Diastole cm/sec ----- Right CCA: 23.8 ----- Right ICA: 37.4 ----- Right ECA: 22.3 LEFT: Peak Systolic Velocity (PSV) cm/sec ----- Left CCA: 97.8 ----- Left ICA: 93.8 ----- Left ECA: 19.7 ICA/CCA ratio: 1.0 LEFT: End Diastole cm/sec ----- Left CCA: 40.1 ----- Left ICA: 32.6 ----- Left ECA: 19.7 VERTEBRALS (direction of flow): Right Vertebral: Antegrade Left Vertebral: Antegrade Rhythm: Normal Bergeron scale images show minimal peripheral plaque right carotid bulb. Velocity measurements and ratios remain within normal limits in the visualized portion of both internal carotid arteries. IMPRESSION: No hemodynamically significant stenosis in either internal carotid artery. Criteria for Assigning % of Stenosis / Diameter reduction (Estimation based on the indirect measurements of the internal carotid artery velocities (ICA PSV). 1. Normal (no stenosis)=ICA PSV < 125 cm/s: ratio < 2.0: ICA EDV<40 cm/s. 2. Less than 50% stenosis=ICA PSV < 125 cm/s: ratio < 2.0: ICA EDV<40 cm/s. 3. 50 to 69% stenosis=ICA PSV of 125 to 230 cm/s: ration 2.0 ? 4.0: ICA EDV 40-100 cm/s. 4. Greater than 70% stenosis to near occlusion= ICA PSV > 230 cm/s: ratio > 4.0: ICA EDV > 100 cm/s. 5. Near occlusion= ICA PSV velocities may be low or undetectable: variable ratio and ICA EDV. 6. Total occlusion=unable to detect flow.
== END | disposition home or self-care (01) ==
LOC: RADUSWWP 15:48
PROVIDERS: ATTEND Psychiatry & Neurology Neurology
DX: R42 Dizziness and giddiness (principal)
CPT/HCPCS: 93880

== ENCOUNTER → 2020-07-23 | Outpatient (CLI) | payer MEDICARE, OTHER ==
--- NOTE | 2020-07-23 13:02 | US ---
EXAMINATION TYPE: US abdomen complete DATE OF EXAM: 07/23/2020 COMPARISON: NONE CLINICAL HISTORY: R39.15 Urinary urgency, R10.30 Lower Abdominal Pain. EXAM MEASUREMENTS: Liver Length: 8.9 cm Gallbladder Wall: Surgically absent CBD: 0.8 cm Spleen: 9.2 cm Right Kidney: 9.9 X 3.9 X 4.1 cm Left Kidney: 9.9 X 4.5 X 4.9 cm Pancreas: Normal where visualized. Liver: Normal. Gallbladder: Surgically absent. CBD: measures 0.8 cm, within normal limits status post cholecystectomy. Spleen: Normal. Right Kidney: No hydronephrosis or masses seen Left Kidney: No hydronephrosis or masses seen Upper IVC: Normal. Abd Aorta: Normal. IMPRESSION: No acute abdominal findings to explain patient's abdominal pain. No hydronephrosis.
--- NOTE | 2020-07-23 13:04 | US ---
EXAMINATION TYPE: US transvaginal DATE OF EXAM: 07/23/2020 COMPARISON: NONE CLINICAL HISTORY: R10.3 LOWER ABS PAIN. TECHNIQUE: Transvaginal (TV). Date of LMP: partial hysterectomy 15 years ago EXAM MEASUREMENTS: Uterus: Surgically absent Endometrial Stripe: Surgically absent Right Ovary: not visualized Left Ovary: not visualized 1. Uterus: Surgically absent 2. Endometrium: Surgically absent 3. Right Ovary: Not visualized. 4. Left Ovary: Not visualized. 5. Bilateral Adnexa: No evidence of mass. Peristalsing bowel noted throughout. 6. Posterior cul-de-sac: No free fluid. IMPRESSION: 1. Status post hysterectomy. 2. Nonvisualization of the bilateral ovaries. 3. No free fluid or adnexal mass.
--- NOTE | 2020-07-23 13:05 | MM ---
Reason for exam: additional evaluation requested from prior study. Last mammogram was performed 1 year and 2 months ago. History: Patient is postmenopausal. Family history of breast cancer in maternal grandmother. Took hormonal contraceptives for 8 years beginning at age 14. Physical Findings: Nurse did not find any significant physical abnormalities on exam. MG 3D Diag Mammo W/Cad JENN Bilateral CC and MLO view(s) were taken. Prior study comparison: May 31, 2019, bilateral MG diagnostic mammo w CAD JENN. December 06, 2011, CAD bilateral diagnostic mammogram. The breast tissue is heterogeneously dense. This may lower the sensitivity of mammography. Benign appearing calcifications in the right breast. No significant new findings when compared with previous films. These results were verbally communicated with the patient and result sheet given to the patient on 07/23/20. ASSESSMENT: Benign, BI-RAD 2 RECOMMENDATION: Routine screening mammogram of both breasts in 1 year.
--- NOTE | 2020-07-23 13:06 | USB ---
Reason for exam: follow-up at short interval from prior study. History: Patient is postmenopausal. Family history of breast cancer in maternal grandmother. Took hormonal contraceptives for 8 years beginning at age 14. US Breast LT Left complete breast ultrasound includes all four quadrants, the retroareolar region and axilla. Finding demonstrates a 0.3 x 0.2 x 0.3cm round, cystic, hypoechoic lesion too small to characterize at 6 o'clock. These results were verbally communicated with the patient and result sheet given to the patient on 07/23/20. ASSESSMENT: Benign, BI-RAD 2 RECOMMENDATION: Routine screening mammogram of both breasts in 1 year.
== END | disposition home or self-care (01) ==
LOC: RADUSWWP 09:49
PROVIDERS: ATTEND Family Medicine
DX: R92.8 Other abnormal and inconclusive findings on diagnostic imaging of breast (principal); R39.15 Urgency of urination; R10.30 Lower abdominal pain, unspecified; Z90.710 Acquired absence of both cervix and uterus
CPT/HCPCS: 77066; 76700; 76830; 76641; G0279; 77062

== ENCOUNTER → 2020-08-12 | Outpatient (CLI) | payer MEDICARE, OTHER ==
--- NOTE | 2020-08-12 16:19 | MR ---
EXAMINATION TYPE: MR shoulder RT wo con DATE OF EXAM: 08/12/2020 COMPARISON: Prior right shoulder MRI November 26, 2016 HISTORY: Rt shoulder/arm pain, prior surgery 2017. Tear of rotator cuff per order. TECHNIQUE: Multiplanar, multisequence imaging of the right shoulder is performed without contrast. FINDINGS: Rotator Cuff: Surgically treated supraspinatus tendon remains intact. There is interval complete retr acted full-thickness tear of the infraspinatus tendon with large gap now identified, infraspinatus te ndon is displaced to level of the acromion on current study. There is moderate to severe atrophy of t he infraspinatus muscle bulk noted. Acromioclavicular Joint: Persistent moderate to severe narrowing. Distal acromion morphology stable a nd unremarkable. Glenohumeral Joint: Somewhat high positioning humeral head redemonstrated. Small effusion is seen. Mo derate narrowing remains present. No new spurring. Labrum: The labrum appears grossly intact given limitation of non-arthrogram study. Biceps Tendon: The long head of biceps is in normal location within bicipital groove. New marked incr eased signal near the biceps anchor coronal image 12. Bone marrow signal: Artifact from rotator cuff surgery now seen along lateral aspect of humeral head. Other: No additional significant abnormality is appreciated. IMPRESSION: Interval rotator cuff surgery. There is interval full-thickness retracted tear of the inf raspinatus tendon. Moderate to severe atrophy suggests this may be more chronic in age. Surgically re paired supraspinatus tendon remains intact. There is new tearing or capsular portion of long head of biceps tendon at the capsular anchor.
== END | disposition home or self-care (01) ==
LOC: RADMRIMAIN 14:25
DX: M75.121 Complete rotator cuff tear or rupture of right shoulder, not specified as traumatic (principal); M62.511 Muscle wasting and atrophy, not elsewhere classified, right shoulder

== ENCOUNTER → 2021-01-01 | Outpatient (CLI) | payer MEDICARE, OTHER | END | disposition home or self-care (01) | LOC: LABWHC1 16:43 | PROVIDERS: ATTEND Family Medicine | DX: Z20.822 Contact with and (suspected) exposure to COVID-19 (principal) | CPT/HCPCS: U0003; C9803; U0005 ==

== ENCOUNTER → 2021-01-08 | Outpatient (CLI) | payer MEDICARE, OTHER ==
[2021-01-08 19:38] LABS: Basophils # (A) 0.05 X 10*3/uL (0.00-0.10); Basophils % (A) 0.7 %; Eosinophils # (A) 0.15 X 10*3/uL (0.04-0.35); HCT 43.7 % (37.2-46.3); HGB 14.2 g/dL (12.0-15.0); Lymphocytes # (A) 2.56 X 10*3/uL (0.90-5.00); Lymphocytes % (A) 34.1 %; MCH 32.6 pg (27.0-32.0); MCHC 32.5 g/dL (32.0-37.0); MCV 100.5 fL (80.0-97.0); Mean Platelet Volume 9.6 fL (9.5-12.2); Monocytes # (A) 0.58 X 10*3/uL (0.20-1.00); Monocytes % (A) 7.7 %; Neutrophils # (A) 4.13 X 10*3/uL (1.80-7.70); Neutrophils % (A) 55.1 %; Platelet Count 293 X 10*3/uL (140-440); RBC 4.35 X 10*6/uL (4.10-5.20); RDW 11.8 % (11.5-14.5)
[2021-01-08 23:57] LABS: INR 0.96 (0.90-1.11); Partial Thromboplastin Time 25.9 sec (23.5-31.0); Prothrombin Time 10.5 sec (9.9-11.9)
[2021-01-09 08:44] LABS: African American GFR (CKD) 113.8 (60.0-200.0); Albumin 4.4 g/dL (3.80-4.90); Albumin/Globulin Ratio 2.2 (1.60-3.17); Anion Gap 9.5 mmol/L (4.00-12.00); BUN/Creat Ratio 12.86 Ratio (12.00-20.00); Calcium 9.9 mg/dL (8.7-10.3); Carbon Dioxide 26.5 mmol/L (21.6-31.8); Non-African American GFR(CKD) 98.2 (60.0-200.0); Potassium 4.2 mmol/L (3.5-5.5); Total Protein 6.4 g/dL (6.2-8.2)
[2021-01-09 16:26] LABS: Total Bilirubin 0.7 mg/dL (0.3-1.2)
== END | disposition home or self-care (01) ==
LOC: LABWHC1 12:21
PROVIDERS: ATTEND Family Medicine
DX: Z01.818 Encounter for other preprocedural examination (principal)
CPT/HCPCS: 36415; 80053; 85025; 85610; 85730

== ENCOUNTER → 2021-01-14 | Outpatient (CLI) | payer MEDICARE, OTHER ==
--- NOTE | 2021-01-15 07:05 | US ---
EXAMINATION TYPE: US abdomen limited DATE OF EXAM: 01/14/2021 COMPARISON: NONE CLINICAL HISTORY: R79.89 Elevated LFT's. Elevated LFT's EXAM MEASUREMENTS: Liver Length: 10.7 cm Gallbladder Wall: Surgically absent CBD: 1.1 cm Right Kidney: 9.2 x 4.1 x 3.0 cm Pancreas: Duct seen 2 mm. Liver: wnl Gallbladder: Surgically absent Evidence for sonographic Delgado's sign: No CBD: Upper limits. Right Kidney: wnl IMPRESSION: No distinct abnormality seen.
== END | disposition home or self-care (01) ==
LOC: RADUSWWP 15:32
PROVIDERS: ATTEND Family Medicine
DX: R79.89 Other specified abnormal findings of blood chemistry (principal)
CPT/HCPCS: 76705

== ENCOUNTER → 2021-04-08 | Outpatient (CLI) | payer MEDICARE, OTHER ==
--- NOTE | 2021-04-09 20:36 | MR ---
EXAMINATION TYPE: MR cspine/lspine wo con DATE OF EXAM: 04/08/2021 COMPARISON: 06/21/2011 HISTORY: 55-year-old female Headaches, neck pain, LBP, BUE/BLE pain and weakness. M54.16 M54.5 M54.6 M54.2 M54.12 TECHNIQUE: Multiplanar, multisequence imaging of the cervical followed by the lumbar spine is perform ed without IV contrast. FINDINGS: CERVICAL SPINE: No craniocervical junction abnormality, predental space widening, or prevertebral soft tissue swellin g. Mild intervertebral disc desiccation throughout the cervical spine. There is a intervertebral disc prosthesis at C5-C6 which causes extensive artifacts in distortion whi ch involves the ventral half of the spinal canal as well. Secondarily, assessment of the cervical spi nal cord at this level is nondiagnostic. Dorsal CSF signal is maintained. No suspicious bone marrow placement. Alignment is maintained. Scattered mild facet degenerative change. Aside from the surgical level, no significant neural forami nal stenosis is seen. LUMBAR SPINE: Vertebral body heights are preserved and alignment is maintained. Intervertebral disc desiccation thr oughout with mild disc bulging mid and lower lumbar spine. Conus medullaris is normal. Mild heterogeneous marrow signal likely with small fatty matrix hemangiomas such as within the T12 ve rtebral body. No suspicious bone marrow placement. Mild facet arthropathy mid to lower lumbar spine. There is a small posterior annular fissure that extends to the left intraforaminal region at L4-L5 an d additional left paracentral posterior annular fissure that extends towards the neuroforamen at L5-S 1. No large focal disc herniation or significant spinal canal stenosis. On the right, minimal inferior neural foraminal narrowing at L4-L5. On the left, minimal inferior foraminal narrowing at L2-L3 and L4-L5. No significant neural foraminal stenosis seen. Small left-sided sacral Tarlov cyst measuring up to 1.2 cm, a couple of which have developed in the i nterval. Larger right-sided sacral Tarlov cyst measuring 2.5 cm versus 2.2 cm in 2010. No prevertebral or paravertebral soft tissue abnormality seen. COMBINED IMPRESSION: CERVICAL SPINE: 1. The spinal cord is nondiagnostic at the C5-C6 level where there is extensive metal artifact from t he patient's intervertebral disc prosthesis. There is preserved dorsal CSF signal which would argue a gainst a significant spinal canal stenosis. Unable to assess for any cord signal abnormality here. 2. Mild intervertebral disc desiccation and scattered mild facet degenerative change. Elsewhere along the cervical spine, no large focal disc herniation or significant spinal canal or foraminal stenosis . LUMBAR SPINE: 3. A 2.5 cm right-sided sacral Tarlov cyst minimally increased in size versus 2.2 cm in 2011. A few s maller left-sided sacral Tarlov cysts measure up to 1.2 cm, a couple of which have developed new sinc e 2010. 4. Mild multilevel degenerative disc disease. Small posterior annular fissure is extending towards th e left at L4-L5 and L5-S1. Very mild facet arthropathy. 5. No large focal disc herniation or significant spinal canal or neuroforaminal stenosis.
== END | disposition home or self-care (01) ==
LOC: RADMRIMAIN 14:46
PROVIDERS: ATTEND Orthopaedic Surgery Orthopaedic Surgery of the Spine
DX: M50.20 Other cervical disc displacement, unspecified cervical region (principal); M47.812 Spondylosis without myelopathy or radiculopathy, cervical region; G96.191 Perineural cyst; M51.36 Other intervertebral disc degeneration, lumbar region; M47.816 Spondylosis without myelopathy or radiculopathy, lumbar region
CPT/HCPCS: 72141; 72148

== ENCOUNTER → 2021-06-08 | Outpatient (CLI) | payer MEDICARE, OTHER ==
--- NOTE | 2021-06-08 11:45 | MR ---
EXAMINATION TYPE: MR knee LT wo con DATE OF EXAM: 06/08/2021 COMPARISON: No previous exams available for correlation HISTORY: Pain and swelling behind the left knee and pain around kneecap as well x2 years TECHNIQUE: Multiplanar, multisequence imaging of the left knee is performed without IV contrast. FINDINGS: MEDIAL MENISCUS: Some abnormal internal signal is noted, there is no evident tear however LATERAL MENISCUS: There is some intrasubstance signal without definitive tear CRUCIATE LIGAMENTS: The anterior and posterior cruciate ligaments are intact and unremarkable. COLLATERAL LIGAMENTS: The medial collateral ligament and lateral collateral ligament complex are inta ct and unremarkable. EXTENSOR MECHANISM: Visualized quadriceps and patellar tendons are intact. EFFUSION: Minimal joint effusion POPLITEAL CYST: No popliteal/rebolledo cyst. TRICOMPARTMENT SPACES: There is an joint space loss especially in the medial compartment CARTILAGE: Suspect some grade II chondromalacia medial compartment, inferior aspect of the patella BONE MARROW SIGNAL: There is intermediate signal T1, increased signal T2 within the proximal tibia as well as within the distal femur greater in the medial femoral condyle than laterally. Along the medi al femoral condyle, coronal image #18 of the proton density data set there is increased signal extend ing in the subchondral location, some linear low signal is present on T1 and T2-weighted sequences wh ich may represent microtrabecular fracture, there may be some local edema. OTHER: There is a multilocular focus present in the region posterior to the lateral aspect of the me dial femoral condyle measuring approximately 1 cm in greatest dimension suggested of a ganglion cyst, small area of fluid signal is present immediately adjacent. IMPRESSION: There is some osteoarthritic change. No evident meniscal tear. Probable ganglion cyst at the posterio r aspect of the knee as described. Possible reactive marrow signal changes within the knee, correlate to exclude trauma along the medial femoral condyle with possible microtrabecular fracture, subchondr al edema change.
== END | disposition home or self-care (01) ==
LOC: RADMRIMAIN 09:12
PROVIDERS: ATTEND Family Medicine
DX: M17.12 Unilateral primary osteoarthritis, left knee (principal)

== ENCOUNTER → 2021-08-07 | Outpatient (CLI) | payer MEDICARE, OTHER ==
[2021-08-07 20:28] LABS: Calcium 9.6 mg/dL (8.7-10.3); T4, Free (Free Thyroxine) 1.02 ng/dL (0.800-1.800)
== END | disposition home or self-care (01) ==
LOC: LABWHC1 12:41
PROVIDERS: ATTEND Psychiatry & Neurology Pain Medicine
DX: E04.1 Nontoxic single thyroid nodule (principal); E55.9 Vitamin D deficiency, unspecified; R22.1 Localized swelling, mass and lump, neck
CPT/HCPCS: 36415; 82306; 82310; 83970; 84439; 84443; 84481

== ENCOUNTER → 2021-08-31 | Outpatient (CLI) | payer MEDICARE, OTHER ==
--- NOTE | 2021-09-01 12:47 | MM ---
Reason for exam: screening (asymptomatic). Last mammogram was performed 1 year and 1 month ago. History: Patient is postmenopausal. Family history of breast cancer in maternal grandmother. Took hormonal contraceptives for 8 years beginning at age 14. Physical Findings: A clinical breast exam by your physician is recommended on an annual basis and results should be correlated with mammographic findings. MG Screening Mammo w CAD Bilateral CC and MLO view(s) were taken. Prior study comparison: July 23, 2020, bilateral MG 3d diag mammo w/cad JENN. May 31, 2019, bilateral MG diagnostic mammo w CAD JENN. The breast tissue is heterogeneously dense. This may lower the sensitivity of mammography. There is no discrete abnormality. No significant changes when compared with prior studies. ASSESSMENT: Negative, BI-RAD 1 RECOMMENDATION: Routine screening mammogram of both breasts in 1 year.
== END | disposition home or self-care (01) ==
LOC: RADMAMWWP 15:35
PROVIDERS: ATTEND Family Medicine
DX: Z12.31 Encounter for screening mammogram for malignant neoplasm of breast (principal); Z78.0 Asymptomatic menopausal state; Z80.3 Family history of malignant neoplasm of breast
CPT/HCPCS: 77067

== ENCOUNTER → 2021-09-02 | Outpatient (CLI) | payer MEDICARE, OTHER ==
--- NOTE | 2021-09-02 13:59 | BD ---
EXAMINATION TYPE: Axial Bone Density DATE OF EXAM: 09/02/2021 COMPARISON: 05.31.2019 CLINICAL HISTORY: 56 YR OLD FEMALE.....ICD-10 CODE: M81.0 OSTEOPOROSIS Height: 63.2 Weight: 123 FRAX RISK QUESTIONS: History of Fracture in Adulthood: UNSURE Secondary Osteoporosis: YES 3. Menopause before 45: YES Current Tobacco Use: YES RISK FACTORS HISTORY OF: Family History of Osteoporosis: YES, HER MOTHER NO HIP FX Postmenopausal woman: YES, AT AGE 36 YRS OLD, NATURAL Hyperparathyroidism: NO Adrenal Insufficiency: NO MEDICATIONS: Osteoporosis Medications: YES, FOSAMAX, SHORT TIME ONLY, NONE NOW Additional Medications: REFLUX MEDS, CALCIUM AND VIT D Additional History: REFLUX, OSTEOPOROSIS, EXAM MEASUREMENTS: Bone mineral densitometry was performed using the Colibr[employer] System. Bone mineral density as measured about the Lumbar spine is: ----- L1-L4(G/cm2): 0.825 T Score Values are as follows: ----- L1: -3.6 ----- L2: -3.8 ----- L3: -2.4 ----- L4: -2.4 ----- L1-L4: -3.0 Bone mineral density has: Increased 18.2% since study of: 05.31.2019 Bone mineral density about the R hip (g/cm2): 0.667 Bone mineral density about the L hip (g/cm2): 0.665 T Score values are as follows: -----R Neck: -2.9 -----L Neck: -3.0 -----R Total: -2.7 -----L Total: -2.7 Bone mineral density has: Increased 15.0% since study of: 05.31.2019 FRAX: M THERE IS A 13.0% CHANCE FOR A MAJOR OSTEOPOROTIC FX AND A 5.7% FOR HIP.....P DARIN ABILITY F OR FX IN 10 YRS TIME IMPRESSION: Osteoporosis (T Score less than -2.5). There is increased fracture risk and therapy is usually indicated based on age. Re-Screen 1-2 years. NOTE: T-SCORE=SD OF THE YOUNG ADULT MEAN.
== END | disposition home or self-care (01) ==
LOC: RADBDWWP 08-28 14:42
PROVIDERS: ATTEND Family Medicine
DX: M81.0 Age-related osteoporosis without current pathological fracture (principal); Z78.0 Asymptomatic menopausal state
CPT/HCPCS: 77080

== ENCOUNTER → 2021-09-07 | Outpatient (CLI) | payer MEDICARE, OTHER ==
--- NOTE | 2021-09-07 13:09 | US ---
EXAMINATION TYPE: US thyroid st tissue head/neck DATE OF EXAM: 09/07/2021 COMPARISON: NONE CLINICAL HISTORY: R22.1 LOCALIZED SWELLING, MASS AND LUMP. patient states feeling possible lump in ri ght neck. GLAND SIZE: Right Lobe: 4.2 x 1.4 x 1.7 cm Overall Parenchyma: homogenous Left Lobe: 4.3 x 1.3 x 1.7 cm Overall Parenchyma: homogeneous Isthmus Thickness: 0.2 cm NODULES RIGHT: # of nodules measured on right: 0 LEFT: # of nodules measured on left: 0 ISTHMUS: # of nodules measured in the isthmus: 0 Bilateral neck scanned. Right superior to thyroid lymph node seen with short axis measuring 0.6 cm. IMPRESSION: No distinct abnormality appreciated.
== END | disposition home or self-care (01) ==
LOC: RADUSWWP 12:23
PROVIDERS: ATTEND Psychiatry & Neurology Neurology
DX: R22.1 Localized swelling, mass and lump, neck (principal)
CPT/HCPCS: 76536

== ENCOUNTER → 2022-01-18 | Outpatient (CLI) | payer MEDICARE, OTHER ==
--- NOTE | 2022-01-19 03:59 | MR ---
EXAMINATION TYPE: MR cervical spine wo/w con DATE OF EXAM: 01/18/2022 COMPARISON: 04/08/2021 HISTORY: Neck pain. Swelling and numbness in hands, dizziness, and headaches. History of surgery CONTRAST: Standard multiplanar, multisequence MRI departmental protocol images were obtained without contrast a nd with 6 mL intravenous Gadavist gadolinium contrast. There is extensive metal artifact from fusion surgery at the C5-6 level. Spinal canal is difficult to evaluate. No obvious mass of the cervical spinal cord. No obvious spinal stenosis. Spinal cord does not show deviation to suggest any significant posterior disc herniation. The brainstem is intact. I s ee no bony destructive process. Contrast images show no pathologic enhancement. IMPRESSION: Fusion surgery at C5-6 with extensive metal artifact. No spinal stenosis. No adverse change compared to the old exam. Limited exam due to artifact.
== END | disposition home or self-care (01) ==
LOC: RADMRIMAIN 17:55
PROVIDERS: ATTEND Psychiatry & Neurology Neurology
DX: M54.2 Cervicalgia (principal); Z98.1 Arthrodesis status
CPT/HCPCS: 72156; A9585

== ENCOUNTER → 2022-07-01 | Outpatient (CLI) | payer MEDICARE, OTHER ==
--- NOTE | 2022-07-01 16:40 | CTL ---
EXAMINATION TYPE: CT Low Dose Lung DATE OF EXAM ORDERED: 07/01/2022 HISTORY: History of chronic smoking. Lung cancer screening CT DLP: 55.[address] CTDI: 1.5 mGy Automated exposure control for dose reduction was used. SCREENING VISIT: Initial low-dose examination COMPARISON: 06/19/2019 TECHNIQUE: Low dose computed tomography scan was performed through the chest at 1 mm thick sections a nd reconstructed images in multiple planes at 1 mm and [address] DIAGNOSTIC QUALITY: Satisfactory FINDINGS: LUNG NODULES: None. LUNGS: COPD: Severity: Severe centrilobular and paraseptal emphysema changes most pronounced in the right samaria ng apex with large bulla. Fibrosis: Severity: None Lymph nodes: None Other findings: Scattered streaky scarring/atelectasis seen throughout the lungs. RIGHT PLEURAL SPACE: Effusion: None Calcification: None Thickening: None Pneumothorax: None LEFT PLEURAL SPACE: Effusion: None Calcification: None Thickening: None Pneumothorax: None HEART: Heart Size: Normal Coronary Calcification: None Pericardial Effusion: None OTHER FINDINGS: Upper abdomen: None Bony thorax: None Supraclavicular region: None Other: The gallbladder is surgically absent. IMPRESSION: 1. No clinically significant pulmonary nodules. 2. Severe emphysema changes with large bulla in the right upper lung. CT LUNG RAD AND CT CHEST RECOMMENDATION: Lung-Rad 1 Negative: Continue annual screening with LDCT in 12 months. S Modifier (other clinically significant findings): S, severe emphysema changes with large right uppe r lobe bulla.
== END | disposition home or self-care (01) ==
LOC: RADCTMAIN 15:16
PROVIDERS: ATTEND Internal Medicine
DX: Z12.2 Encounter for screening for malignant neoplasm of respiratory organs (principal); Z87.891 Personal history of nicotine dependence
CPT/HCPCS: 71271

== ENCOUNTER 2023-06-13 20:35 | Emergency (ER) | payer MEDICARE, OTHER ==
[2023-06-13 21:02] LABS: Basophils % (A) 0 %; Eosinophils # (A) 0.2 k/uL (0-0.7); Eosinophils % (A) 2 %; HCT 44.4 % (34.0-46.0); HGB 14.5 gm/dL (11.4-16.0); Lymphocytes # (A) 2.3 k/uL (1.0-4.8); Lymphocytes % (A) 25 %; MCH 32.7 pg (25.0-35.0); MCHC 32.7 g/dL (31.0-37.0); MCV 100.2 fL (80.0-100.0); Mean Platelet Volume 7.3; Monocytes # (A) 0.4 k/uL (0-1.0); Monocytes % (A) 4 %; Neutrophils # (A) 6.2 k/uL (1.3-7.7); Neutrophils % (A) 67 %; Platelet Count 248 k/uL (150-450); RBC 4.43 m/uL (3.80-5.40); RDW 12.2 % (11.5-15.5); WBC 9.3 k/uL (3.8-10.6)
[2023-06-13] MEDS ORDERED: KETOROLAC 15 MG/ML 1 ML VIAL IVP STA (21:06)
[2023-06-13 21:17] LABS: ALT 21 U/L (4-34); AST 28 U/L (14-36); African American GFR (CKD) >90 (>60 ml/min/1.73 sqM); Alkaline Phosphatase 136 U/L (38-126); Anion Gap 8 mmol/L; Blood Urea Nitrogen 12 mg/dL (7-17); Calcium 9.2 mg/dL (8.4-10.2); Carbon Dioxide 24 mmol/L (22-30); Chloride 104 mmol/L (98-107); Glucose 107 mg/dL (74-99); Lipase 63 U/L (23-300); Magnesium 1.8 mg/dL (1.6-2.3); Non-African American GFR(CKD) >90 (>60 ml/min/1.73 sqM); Potassium 4.1 mmol/L (3.5-5.1); Sodium 136 mmol/L (137-145); Total Bilirubin 0.6 mg/dL (0.2-1.3); Total Protein 6.8 g/dL (6.3-8.2)
--- NOTE | 2023-06-13 21:54 | ED ---
General Adult HPI - General Chief complaint: Abdominal Pain Stated complaint: FLANK PAIN Time Seen by Provider: 06/13/23 20:39 Source: EMS Mode of arrival: EMS Limitations: no limitations - History of Present Illness Initial comments: This is a 57-year-old female with a past medical history including osteoarthritis and osteoporosis as well as fibromyalgia presents emergency department via EMS for acute right-sided flank pain. The patient stated that this pain began at 6 PM and was severe in the right groin and right flank. The patient stated that she had the sensation of urination but was able to urinate over the last several hours. The patient denied any similar pain to this and denied any trauma to the area. The patient denied any lightheadedness or dizziness as well as any fevers and chills. - Related Data Home Medications Medication Instructions Recorded Confirmed Omeprazole [PriLOSEC] 20 mg PO BID 12/30/15 09/15/17 oxyCODONE-APAP 10-325MG [Percocet 1 tab PO Q6HR PRN 12/30/15 09/15/17 10-325 mg] Cyclobenzaprine [Flexeril] 10 mg PO TID PRN 11/29/16 09/15/17 Previous Rx's Medication Instructions Recorded Ibuprofen [Motrin] 800 mg PO Q6HR PRN #20 tab 11/30/16 Ketorolac [Toradol] 10 mg PO Q6HR #30 tab 06/13/23 Ondansetron Odt [Zofran Odt] 4 mg PO Q8HR PRN #20 tab 06/13/23 Tamsulosin [Flomax] 0.4 mg PO DAILY #30 cap 06/13/23 Allergies Allergy/AdvReac Type Severity Reaction Status Date / Time Androgenic Anabolic Steroid AdvReac Dyspnea,rash,chest Verified 04/09/19 14:35 tightness Review of Systems ROS Statement: Those systems with pertinent positive or pertinent negative responses have been documented in the HPI. ROS Other: All systems not noted in ROS Statement are negative. Past Medical History Past Medical History: COPD, Eye Disorder, GERD/Reflux, Osteoarthritis (OA) Additional Past Medical History / Comment(s): CURRENT LOWER LEFT SIDE ABDOMINAL PAIN, HX HERPES, collapsed lung, emphysema, IBS, hx pos h-pylori, glaucoma cj eyes, lt cataract. DDD History of Any Multi-Drug Resistant Organisms: None Reported Past Surgical History: Cholecystectomy, Hysterectomy Additional Past Surgical History / Comment(s): NECK DISC REPLACEMENT C5-C6 ,glaucoma proc cj eyes. EPIDURALS FOR PAIN Additional Past Anesthesia/Blood Transfusion Reaction / Comment(s): b/p dropped low with prior pain injections to back,has had very bad gas pain with prior colonoscopy. Past Psychological History: Anxiety, Depression Past Drug Use History: None Reported - Past Family History Mother Family Medical History: Cancer Additional Family Medical History / Comment(s): lung Father History Unknown: Yes Family Medical History: Congestive Heart Failure (CHF) Sister(s) Additional Family Medical History / Comment(s): stomach problems Brother(s) Additional Family Medical History / Comment(s): lung problems General Exam Limitations: no limitations General appearance: alert, in no apparent distress Head exam: Present: atraumatic, normocephalic, normal inspection Eye exam: Present: normal appearance, PERRL Pupils: Present: normal accommodation ENT exam: Present: normal exam, normal oropharynx, mucous membranes moist Neck exam: Present: normal inspection, full ROM Respiratory exam: Present: normal lung sounds bilaterally Cardiovascular Exam: Present: regular rate, normal rhythm, normal heart sounds GI/Abdominal exam: Present: soft, normal bowel sounds. Absent: tenderness Extremities exam: Present: normal inspection, full ROM Back exam: Present: normal inspection, full ROM. Absent: CVA tenderness (R) Neurological exam: Present: alert, oriented X3, CN II-XII intact Psychiatric exam: Present: normal affect, normal mood Skin exam: Present: warm, dry Course Vital Signs 06/13/23 20:36 Temperature 98.4 F Pulse Rate 66 Respiratory 20 Rate Blood Pressure 95/75 O2 Sat by Pulse 94 L Oximetry EKG Findings - EKG Comments: EKG Findings:: An EKG was obtained and was interpreted by myself showing a rate of 63, ME interval 172, QS duration 108 and QTC of 4:15. This EKG showed a normal sinus rhythm with no ST segment elevation or depression noted. Medical Decision Making - Medical Decision Making Was pt. sent in by a medical professional or institution (, PA, APPOINTMENT SPECIALIST, urgent care, hospital, or intermediate...) When possible be specific @ -No Did you speak to anyone other than the patient for history (EMS, parent, family, police, friend...)? What history was obtained from this source @ -No Did you review nursing and triage notes (agree or disagree)? Why? @ -I reviewed and agree with nursing and triage notes Were old charts reviewed (outside hosp., previous admission, EMS record, old EKG, old radiological studies, urgent care reports/EKG's, intermediate records)? Report findings @ -No old charts were reviewed Differential Diagnosis (chest pain, altered mental status, abdominal pain women, abdominal pain men, vaginal bleeding, weakness, fever, dyspnea, syncope, headache, dizziness, GI bleed, back pain, seizure, CVA, palpatations, mental health)? @ -Appendicitis, kidney stone, gastroenteritis EKG interpreted by me (3pts min.). @ -As above X-rays interpreted by me (1pt min.). @ -None done CT interpreted by me (1pt min.). @ -CT of the abdomen and pelvis without contrast was obtained and was interpreted by myself showing an obstructing 2 mm right UVJ stone producing mild upstream hydroureter nephrosis. There was also a cholecystectomy seen within a large common bile duct measuring 10 mm most likely reservoir affect. There is slight duct stone. U/S interpreted by me (1pt. min.). @ -None done What testing was considered but not performed or refused? (CT, X-rays, U/S, labs)? Why? @ -None What meds were considered but not given or refused? Why? @ -None Did you discuss the management of the patient with other professionals (professionals i.e. , PA, APPOINTMENT SPECIALIST, lab, RT, psych nurse, social group worker, helicopter repairer, teacher, contracting officer, clinical case manager)? Give summary @ -No Was smoking cessation discussed for >3mins.? @ -No Was critical care preformed (if so, how long)? @ -No Were there social determinants of health that impacted care today? How? (Homelessness, low income, unemployed, alcoholism, drug addiction, transportation, low edu. Level, literacy, decrease access to med. care, [place] [facility], rehab)? @ -No Was there de-escalation of care discussed even if they declined (Discuss DNR or withdrawal of care, Hospice)? DNR status @ -No What co-morbidities impacted this encounter? (DM, HTN, Smoking, COPD, CAD, Cancer, CVA, ARF, Chemo, Hep., AIDS, mental health diagnosis, sleep apnea, morbid obesity)? @ -Osteoarthritis, osteoporosis, fibromyalgia Was patient admitted / discharged? Hospital course, mention meds given and route, prescriptions, significant lab abnormalities, going to OR and other pertinent info. @ -The patient was seen and evaluated emergency department. Physical exam, the patient was resting in bed initially an acute distress secondary to right flank pain. The patient did receive Toradol for this as she was requesting this for pain medications. Laboratory workup was obtained and was the normal limits including a negative urinalysis. Due to the patient's symptoms and pain, a CT abdomen and pelvis without contrast was obtained and showed an obstructing 2 mm stone. The patient on reevaluation had improvement of her pain and symptoms and was stable for discharge home. The patient was given prescriptions including Toradol, Zofran and Flomax and told to continue to strain her urine. The patient was agreeable to this over questions were answered. The patient was discharged home in stable condition. Undiagnosed new problem with uncertain prognosis? @ -No Drug Therapy requiring intensive monitoring for toxicity (Heparin, Nitro, Insulin, Cardizem)? @ -No Were any procedures done? @ -No Diagnosis/symptom? @ -Right obstructing 2 mm kidney stone Acute, or Chronic, or Acute on Chronic? @ -Acute Uncomplicated (without systemic symptoms) or Complicated (systemic symptoms)? @ -Uncomplicated Side effects of treatment? @ -No Exacerbation, Progression, or Severe Exacerbation? @ -No Poses a threat to life or bodily function? How? (Chest pain, [place], [place], pneumonia, PE, COPD, DKA, ARF, appy, cholecystitis, CVA, Diverticulitis, Homicidal, Suicidal, threat to staff... and all critical care pts) @ -No - Lab Data Result diagrams: 06/13/23 20:45 06/13/23 20:45 Lab Results 06/13/23 06/13/23 06/13/23 Range/Units 20:45 20:45 21:45 WBC 9.3 (3.8-10.6) k/uL RBC 4.43 (3.80-5.40) m/uL Hgb 14.5 (11.4-16.0) gm/dL Hct 44.4 (34.0-46.0) % MCV 100.2 H (80.0-100.0) fL MCH 32.7 (25.0-35.0) pg MCHC 32.7 (31.0-37.0) g/dL RDW 12.2 (11.5-15.5) % Plt Count 248 (150-450) k/uL MPV 7.3 Neutrophils % 67 % Lymphocytes % 25 % Monocytes % 4 % Eosinophils % 2 % Basophils % 0 % Neutrophils # 6.2 (1.3-7.7) k/uL Lymphocytes # 2.3 (1.0-4.8) k/uL Monocytes # 0.4 (0-1.0) k/uL Eosinophils # 0.2 (0-0.7) k/uL Basophils # 0.0 (0-0.2) k/uL Sodium 136 L (137-145) mmol/L Potassium 4.1 (3.5-5.1) mmol/L Chloride 104 (98-107) mmol/L Carbon Dioxide 24 (22-30) mmol/L Anion Gap 8 mmol/L BUN 12 (7-17) mg/dL Creatinine 0.66 (0.52-1.04) mg/dL Est GFR (CKD-EPI)AfAm >90 (>60 ml/min/1.73 sqM) Est GFR (CKD-EPI)NonAf >90 (>60 ml/min/1.73 sqM) Glucose 107 H (74-99) mg/dL Calcium 9.2 (8.4-10.2) mg/dL Magnesium 1.8 (1.6-2.3) mg/dL Total Bilirubin 0.6 (0.2-1.3) mg/dL AST 28 (14-36) U/L ALT 21 (4-34) U/L Alkaline Phosphatase 136 H (38-126) U/L Total Protein 6.8 (6.3-8.2) g/dL Albumin 4.0 (3.5-5.0) g/dL Lipase 63 (23-300) U/L Urine Color Yellow Urine Appearance Clear (Clear) Urine pH 5.5 (5.0-8.0) Ur Specific [place] 1.032 (1.001-1.035) Urine Protein Trace H (Negative) Urine Glucose (UA) Negative (Negative) Urine Ketones Negative (Negative) Urine Blood Negative (Negative) Urine Nitrite Negative (Negative) Urine Bilirubin Negative (Negative) Urine Urobilinogen 2.0 (<2.0) mg/dL Ur Leukocyte Esterase Negative (Negative) Disposition Clinical Impression: Kidney stone Disposition: HOME SELF-CARE Condition: Stable Instructions (If sedation given, give patient instructions): Kidney Stones (ED) Prescriptions: Tamsulosin [Flomax] 0.4 mg PO DAILY #30 cap Ketorolac [Toradol] 10 mg PO Q6HR #30 tab Ondansetron Odt [Zofran Odt] 4 mg PO Q8HR PRN #20 tab PRN Reason: Nausea Is patient prescribed a controlled substance at d/c from ED?: Yes When asked, does pt state using other controlled substances?: No If prescribed controlled substance>3 days was MAPS reviewed?: Prescribed <3 Days If opioid is for acute pain is fill amount 7 days or less?: Yes If Rx opioid, was Start Talking consent form obtained?: Yes Referrals: Jeanette Pollard MD [Primary Care Provider] - 1-2 days Time of Disposition: 23:15
[2023-06-13 22:05] LABS: Appearance,Urine Clear (Clear); Bilirubin,Urine Negative (Negative); Blood,Urine Negative (Negative); Color,Urine Yellow; Glucose,Urine (UA) Negative (Negative); Ketones,Urine Negative (Negative); Leukocyte Esterase,Urine Negative (Negative); Nitrite,Urine Negative (Negative); PH, Urine 5.5 (5.0-8.0); Protein,Urine Trace (Negative); Specific Gravity,Urine 1.032 (1.001-1.035)
[2023-06-13] MEDS ORDERED: SODIUM CHLORIDE 0.9% 1,000 ML IV ONE (22:12)
--- NOTE | 2023-06-13 23:12 | CT ---
EXAM: CT Abdomen and Pelvis Without Intravenous Contrast CLINICAL HISTORY: ITS.REASON CT Reason: Flank pain, r/o kidney stone TECHNIQUE: Axial computed tomography images of the abdomen and pelvis without intravenous contrast. CTDI is 7.4 mGy and DLP is 384.6 mGy-cm. This CT exam was performed using one or more of the following dose reduction techniques: automated exposure control, adjustment of the mA and/or kV according to patient size, and/or use of iterative reconstruction technique. COMPARISON: 10/13/18 FINDINGS: Lung bases: Clear lung bases. ABDOMEN: Liver: Unremarkable. Gallbladder and bile ducts: Cholecystectomy. Enlarged common bile duct measuring 10 mm, most likely reservoir effect. No calcified duct stone. Pancreas: Unremarkable. No ductal dilation. Spleen: Unremarkable. No splenomegaly. Adrenals: Unremarkable. No mass. Kidneys and ureters: Obstructing 2 mm right UVJ stone producing mild upstream hydroureteronephrosis. Punctate nonobstructing left kidney lower pole stones without hydronephrosis. Stomach and bowel: Unremarkable. No mucosal thickening. No bowel obstruction. PELVIS: Appendix: No evidence of appendicitis. Bladder: Decompressed, limiting evaluation. Reproductive: Hysterectomy. ABDOMEN and PELVIS: Intraperitoneal space: Unremarkable. No free air. No significant fluid collection. Bones/joints: No acute fracture or dislocation. Soft tissues: Unremarkable. Vasculature: Atherosclerosis of the abdominal aorta. No aneurysm. Lymph nodes: Unremarkable. No enlarged lymph nodes. IMPRESSION: 1. Obstructing 2 mm right UVJ stone producing mild upstream hydroureteronephrosis. 2. Cholecystectomy. Enlarged common bile duct measuring 10 mm, most likely reservoir effect. No calcified duct stone. If there is laboratory evidence of biliary obstruction, consider MRCP.
[2023-06-13] MEDS ORDERED: ONDANSETRON 4 MG/2 ML VIAL IVP STA (23:27)
[2023-06-13] MEDS ORDERED: TAMSULOSIN 0.4 MG CAP.ER.24H PO STA (23:41)
[2023-06-13 23:53] VITALS: BP 142/76; PULSE 88; RESP 18; TEMP 97.9
== END 2023-06-13 23:52 | disposition home or self-care (01) ==
LOC: EC 20:35
DX: N13.2 Hydronephrosis with renal and ureteral calculous obstruction (principal); J43.9 Emphysema, unspecified; M81.0 Age-related osteoporosis without current pathological fracture; K21.9 Gastro-esophageal reflux disease without esophagitis; M19.90 Unspecified osteoarthritis, unspecified site; Z90.49 Acquired absence of other specified parts of digestive tract; Z86.59 Personal history of other mental and behavioral disorders; Z79.899 Other long term (current) drug therapy
CPT/HCPCS: 99285 ×2; 96374 ×2; 96375 ×2; 96361 ×2; 36415; 80053; 83690; 83735; 85025; 81003; 74176; J2405; J1885

== ENCOUNTER → 2023-06-16 | Outpatient (CLI) | payer MEDICARE, OTHER ==
--- NOTE | 2023-06-16 17:31 | XR ---
EXAMINATION TYPE: XR KUB DATE OF EXAM: 06/16/2023 COMPARISON: CT abdomen pelvis 06/13/2023 HISTORY: Right renal stone TECHNIQUE: Abdomen is examined in the supine view FINDINGS: Cholecystectomy clips are upper quadrant. Nasal piercing is in the midline. This is in the midline over the pelvis. Fecal debris is through the colon. No mass effect is evident. Psoas margins are normal. Organomegaly is not evident. No suspicious renal stones are evident. Multiple phleboliths are in the right lower hemipelvis. The p revious distal right ureteral vesicle junction stone may be within this region. IMPRESSION: 1. Multiple phleboliths within the right hemipelvis. Distal right ureteral vesicle junction stone ma y be included within this region.
== END | disposition home or self-care (01) ==
LOC: RADXRMAIN 16:08
PROVIDERS: ATTEND Family Medicine
DX: N20.0 Calculus of kidney (principal); I87.8 Other specified disorders of veins
CPT/HCPCS: 74018

== ENCOUNTER → 2023-08-31 | Outpatient (CLI) | payer MEDICARE, OTHER ==
--- NOTE | 2023-08-31 13:58 | US ---
EXAMINATION TYPE: US carotid duplex BILAT DATE OF EXAM: 08/31/2023 COMPARISON: 03/26/2020 CLINICAL INDICATION: Female, 58 years old with history of R42 LIGHTHEADEDNESS; Patient states she has been lightheaded for a few months, comes and goes. TECHNIQUE: Carotid duplex ultrasound examination. Indirect Doppler criteria was utilized. FINDINGS: EXAM MEASUREMENTS: RIGHT: Peak Systolic Velocity (PSV) cm/sec ----- Right CCA: 68.8 ----- Right ICA: 104.3 ----- Right ECA: 81.7 ICA/CCA ratio: 1.5 RIGHT: End Diastole cm/sec ----- Right CCA: 36.9 ----- Right ICA: 47.4 ----- Right ECA: 25.0 LEFT: Peak Systolic Velocity (PSV) cm/sec ----- Left CCA: 78.2 ----- Left ICA: 111.7 ----- Left ECA: 68.6 ICA/CCA ratio: 1.4 LEFT: End Diastole cm/sec ----- Left CCA: 35.4 ----- Left ICA: 52.3 ----- Left ECA: 29.3 VERTEBRALS (direction of flow): Right Vertebral: Antegrade Left Vertebral: Antegrade Rhythm: Normal AQUEDUCT AND RESERVOIR KEEPER NOTES: Mild bilateral plaque at bulb. No elevated velocities noted. Left ICA appears tort uous in appearance. Exam slightly limited due to tortuous and deep diving vessels. IMPRESSION: Less than 50% stenosis of the bilateral carotid bifurcations. Criteria for Assigning % of Stenosis / Diameter reduction (Estimation based on the indirect measurements of the internal carotid artery velocities (ICA PSV). 1. Normal (no stenosis)=ICA PSV < 125 cm/s: ratio < 2.0: ICA EDV<40 cm/s. 2. Less than 50% stenosis=ICA PSV < 125 cm/s: ratio < 2.0: ICA EDV<40 cm/s. 3. 50 to 69% stenosis=ICA PSV of 125 to 230 cm/s: ration 2.0 ? 4.0: ICA EDV 40-100 cm/s. 4. Greater than 70% stenosis to near occlusion= ICA PSV > 230 cm/s: ratio > 4.0: ICA EDV > 100 cm/s. 5. Near occlusion= ICA PSV velocities may be low or undetectable: variable ratio and ICA EDV. 6. Total occlusion=unable to detect flow.
--- NOTE | 2023-08-31 14:52 | US ---
EXAMINATION TYPE: US extremity nonvascular ltd LT DATE OF EXAM: 08/31/2023 COMPARISON: NONE CLINICAL INDICATION: Female, 58 years old with history of M71.22 POPLITEAL CYST, LT; Bump posterior l eft knee. R/O cyst. TECHNIQUE: Several images taken at posterior fossa at area of concern. FINDINGS: Ship Rigger Apprentice notes: No discrete abnormalities seen today. IMPRESSION: Targeted scanning in the left popliteal fossa at the site of patient's area of concern. No Billings's cy st or other discrete sonographic abnormality is seen. Clinical follow-up recommended.
--- NOTE | 2023-09-05 01:14 | MM ---
Reason for Exam: Screening (asymptomatic). Last mammogram was performed 2 year(s) and 0 month(s) ago. Patient History: Menarche at age 12. First Full-Term at age 20. Hysterectomy at age 40. Postmenopausal. Hormonal Contraceptives for 8 years from age 14 until age 22. Maternal grandmother had breast cancer. Risk Values: Belen 5 year model risk: 1.0%. NCI Lifetime model risk: 6.3%. Prior Study Comparison: 05/31/2019 Bilateral Diagnostic Mammogram, [facility]. 07/23/2020 Bilateral Diagnostic Mammogram, [facility]. 08/31/2021 Bilateral Screening Mammogram, [facility]. Tissue Density: There are scattered fibroglandular densities. Findings: Analyzed By CAD. There is no suspicious group of microcalcifications or new suspicious mass in either breast. Overall Assessment: Negative, BI-RAD 1 Management: Screening Mammogram of both breasts in 1 year. . Patient should continue monthly self-breast exams. A clinical breast exam by your physician is recommended on an annual basis. This exam should not preclude additional follow-up of suspicious palpable abnormalities. Note on Belen scores and lifetime risk: 1. A Belen score greater than 3% is considered moderate risk. If this is the case, consider specialist referral to assess eligibility for a risk reducing agent. 2. If overall lifetime risk for the development of breast cancer is 20% or higher, the patient may qualify for future screening with alternating mammogram and breast MRI. Electronically signed and approved by: Ryder De La Cruz M.D. Radiologist
== END | disposition home or self-care (01) ==
LOC: RADUSWWP 12:43
PROVIDERS: ATTEND Family Medicine
DX: Z12.31 Encounter for screening mammogram for malignant neoplasm of breast (principal); M71.22 Synovial cyst of popliteal space [Baker], left knee; I65.23 Occlusion and stenosis of bilateral carotid arteries; R42 Dizziness and giddiness; Z78.0 Asymptomatic menopausal state; Z80.3 Family history of malignant neoplasm of breast
CPT/HCPCS: 77067; 93880

== ENCOUNTER → 2023-11-21 | Outpatient (CLI) | payer MEDICARE, OTHER ==
--- NOTE | 2023-11-25 07:38 | CTL ---
EXAMINATION TYPE: CT Low Dose Lung DATE OF EXAM ORDERED: 11/21/2023 HISTORY: Nicotine dependence. Lung cancer screening CT DLP: 49.[address] CTDI: 1.3 mGy Automated exposure control for dose reduction was used. SCREENING VISIT: Subsequent COMPARISON: 07/01/2022 TECHNIQUE: Low dose computed tomography scan was performed through the chest at 1 mm thick sections a nd reconstructed images in the coronal plane at [address] DIAGNOSTIC QUALITY: Satisfactory FINDINGS: LUNG NODULES: None. LUNGS: COPD: Severity: Severe. The right apex essentially replaced with a large bulla. Fibrosis: Severity: Mild Lymph nodes: None Other findings: None RIGHT PLEURAL SPACE: Effusion: None Calcification: None Thickening: None Pneumothorax: None LEFT PLEURAL SPACE: Effusion: None Calcification: None Thickening: None Pneumothorax: None HEART: Heart Size: Normal Coronary calcification: Mild Pericardial effusion: None OTHER FINDINGS: Upper abdomen: Normal Bony thorax: Normal Supraclavicular region: Normal Other: None IMPRESSION: 1. No suspicious changes to suggest primary or metastatic neoplasm. 2. Severe emphysematous changes FOLLOW UP CT CHEST RECOMMENDATION: Follow-up low-dose CT chest one year CT LUNG RAD: Lung-Rad 1 Negative
--- NOTE | 2023-11-27 19:23 | MR ---
EXAMINATION TYPE: MR knee LT wo con DATE OF EXAM: 11/21/2023 COMPARISON: MRI 06/08/2021 HISTORY: 58-year-old female Left knee pain for 10 years. R22.9 Lump of skin, Z12.2, F17.210 TECHNIQUE: Multiplanar, multisequence imaging of the left knee is performed without IV contrast. FINDINGS: There is no skin marker placed to delineate a palpable soft tissue lump. There is persistent concern, the exam can be reviewed with direct attention. ACL, PCL, MCL, and LCL complex are intact. Possible bilocular parameniscal cyst at the posterior root of the medial meniscus measuring 1.1 x 0.6 cm. There is an oblique tear at the junction of the posterior horn and body of the medial meniscus. Mild diffuse thinning of medial compartment articular cartilage volume. There appears to be a tiny peripheral, longitudinal tear involving the posterior horn of the lateral meniscus at the insertion of the meniscal femoral ligament, refer to sagittal series 401 image 12 and 13. Lateral compartment articular cartilage volume is maintained. Mild diffuse thinning of articular cartilage in the patellofemoral compartment. Extensor mechanism is intact. Trace, physiologic joint fluid. No sizable Billings's cyst. Normal popliteal artery anatomy and muscle bulk. No suspicious bone marrow replacement. Interval healing of the multiple bone bruises seen on 2020. IMPRESSION: 1. Small oblique tear at the junction of the posterior horn and body of the medial meniscus. In addit ion, there is a possible bilocular parameniscal cyst measuring 1.1 x 0.6 cm at the posterior root of the medial meniscus. 2. Tiny, peripheral, longitudinal tear involving the posterior horn of the lateral meniscus at the in sertion of the meniscofemoral ligament. 3. Mild diffuse thinning of articular cartilage in both medial and patellofemoral compartments. 4. No palpable marker was placed at the patient's lump as stated in the history. No soft tissue mass is clearly identified. If persistent concern, the exam can be reviewed with direct attention.
== END | disposition home or self-care (01) ==
LOC: RADMRIMAIN 14:18
PROVIDERS: ATTEND Family Medicine
DX: Z12.2 Encounter for screening for malignant neoplasm of respiratory organs (principal); S83.242A Other tear of medial meniscus, current injury, left knee, initial encounter; S83.282A Other tear of lateral meniscus, current injury, left knee, initial encounter; J98.4 Other disorders of lung; R22.9 Localized swelling, mass and lump, unspecified; X58.XXXA Exposure to other specified factors, initial encounter; F17.210 Nicotine dependence, cigarettes, uncomplicated
CPT/HCPCS: 71271

== ENCOUNTER → 2023-11-28 | Outpatient (CLI) | payer MEDICARE, OTHER ==
--- NOTE | 2023-11-28 15:10 | US ---
EXAMINATION TYPE: US abdomen limited DATE OF EXAM: 11/28/2023 COMPARISON: 01/14/[address] 06/13/2023. CLINICAL INDICATION: Female, 58 years old with history of R74.01 ELEVATION OF LEVELS OF LIVER TRANSAM INASE L; Elevated ALT, dilated CBD TECHNIQUE: Multiple sonographic images of the right upper quadrant are obtained. FINDINGS: EXAM MEASUREMENTS: Liver Length: 15.9 cm Gallbladder: Surgically absent CBD: 1.3 cm Right Kidney: 9.7x3.7x4.0 cm DEDICATED DRIVER NOTES: exam limited by bowel Pancreas: Prominent main pancreatic duct but not abnormally dilated measuring up to 1.7 mm. Liver: There is some scattered mild intrahepatic biliary ductal dilatation. Gallbladder: Surgically absent Evidence for sonographic Delgado's sign: No CBD: dilated . Measured 1.1 cm on 01/14/2021. Measured 1.[address] of 06/13/2023. Right Kidney: No hydronephrosis or masses seen IMPRESSION: Status post cholecystectomy. Persistent intrahepatic and extrahepatic biliary ductal dilatation with the bile duct measuring up to 1.3 cm, similar compared to CT of 06/13/2023. Correlate with alkaline jeffrey sphatase and bilirubin levels.
== END | disposition home or self-care (01) ==
LOC: RADUSWWP 09:41
PROVIDERS: ATTEND Family Medicine
DX: K83.8 Other specified diseases of biliary tract (principal); R74.01 Elevation of levels of liver transaminase levels; Z90.49 Acquired absence of other specified parts of digestive tract
CPT/HCPCS: 76705

== ENCOUNTER → 2024-02-22 | Outpatient (CLI) | payer MEDICARE ==
--- NOTE | 2024-02-22 11:58 | XR ---
EXAMINATION TYPE: XR ribs LT w pa chest xray DATE OF EXAM: 02/22/2024 11:48 AM CLINICAL INDICATION:Female, 58 years old with history of R07.81 Rib pain left sided; COMPARISON: 10/13/2018 TECHNIQUE: XR ribs LT w pa chest xray; Frontal and oblique views of the ribs with frontal chest radio graph. FINDINGS: The ribs have a normal appearance. No evidence of fracture. Overall, the lungs are clear. The cardiac silhouette is normal in size. The remaining osseous structures are intact. Flattening o f the diaphragm with increased lucency of the lung apices. There is fixation hardware in the lower sp ine IMPRESSION: 1. No acute osseous pathology. 2. COPD changes.
== END | disposition home or self-care (01) ==
LOC: RADXRMAIN 11:31
PROVIDERS: ATTEND Family Medicine
DX: J44.9 Chronic obstructive pulmonary disease, unspecified (principal); R07.81 Pleurodynia

== ENCOUNTER → 2024-02-23 | Outpatient (CLI) | payer MEDICARE ==
--- NOTE | 2024-02-25 17:39 | CT ---
EXAMINATION TYPE: CT chest wo con CT DLP: 115.9 mGycm, Automated exposure control for dose reduction was used. DATE OF EXAM: 02/23/2024 5:09 PM COMPARISON: CT 11/21/2023 CLINICAL INDICATION:Female, 58 years old with history of R07.81 PLEURODYNIA; PHH, left rib pain TECHNIQUE: Multiple axial images were obtained through the chest. Sagittal and coronal reformats were created for review. Contrast used: mL of (None if empty) Oral contrast used: (None if empty) FINDINGS: LUNGS/ PLEURA: Moderate to severe paraseptal emphysema in centrilobular emphysema changes worse in th e right lung apex with large bulla. AIRWAY: Patent and unremarkable. HEART: Size within normal limits. Mild coronary artery atherosclerosis. MEDIASTINUM: No gross evidence of adenopathy. VASCULATURE: No aortic aneurysm. MUSCULOSKELETAL: No acute osseous abnormalities SOFT TISSUES/LYMPH NODES: Unremarkable. LOWER NECK: No significant findings. UPPER ABDOMEN: Gallbladder is surgically absent. There is mild dilation of the extra hepatic biliary system. IMPRESSION: 1. No evidence for left rib fracture. 2. 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
== END | disposition home or self-care (01) ==
LOC: RADCTMAIN 16:44
PROVIDERS: ATTEND Family Medicine
DX: J43.2 Centrilobular emphysema (principal); R07.81 Pleurodynia
CPT/HCPCS: 71250